=== PATIENT | female | born 1985 | race Caucasian/White ===

== ENCOUNTER 2017-06-01 20:19 | Inpatient (IN) | payer OTHER ==
[~2017-06-01] VITALS: Ht 174 cm; Wt 55.6 kg
[2017-06-01 20:49] VITALS: BP 142/96; RESP 20; O2SAT 100
--- NOTE | 2017-06-01 20:52 | ED.REPORT ---
HPI-General Illness Date of Service Jun 01, 2017 ED Provider: Mir Sanders MD Pt is a generally healthy 31 y/o female presenting to the ED with her father due to seizure and severely bitten tongue which occurred this afternoon. The patient was observed by her father to lean forward, begin whole body shaking, and fall into a pile of clothes on the ground. The episode lasted about 2 minutes. She does have a history of seizures and previously took Keppra but stopped because "her neurologist at [facility] told her she should stop it because they didn't know why she was having seizures and thought she may be experiencing pseudo-seizures". She has bit her tongue previously. There was no injury during the fall other than tongue biting and father who saw the event states that she did not hit her head. Some of the history is obtained from the father as the patient's tongue is quite mangled and she has difficulty speaking. Nursing Notes Stated Complaint: BIT TONGUE Chief Complaint: ENT & Mouth Nursing Notes Reviewed: Yes Allergies: Coded Allergies: Penicillins (Verified Allergy, Severe, Anaphylaxis, 06/01/17) iodine (Verified Allergy, Unknown, 06/01/17) lidocaine (Verified Allergy, Unknown, 06/01/17) Uncoded Allergies: PEANUT BUTTER (Allergy, Mild, vomiting, 06/01/17) General Time Seen by MD: 20:34 Chief Complaint Other (seizure) Hx Obtained From: Patient Arrived By: Walk-in Sudden in Onset?: Yes Onset Occurred: 1 - 4 hours ago Symptom Duration: 1 - 15 minutes Location: : Mouth Quality: Painful Severity: Current: Moderate Severity: Maximum: Moderate Past Medical History Past Medical History Diagnosed with pseudo-seizures per [facility] Past Surgical History None reported Smoking History Unknown if Ever Smoker Ambulatory Status Independent Review of Systems +tongue pain Full Review of Systems GI: Denies: Nausea, Vomiting Neurologic: Reports: Change LOC, Seizure, Shaking, Denies: Headache Complete sys rev & neg: except as marked. Physical Exam Vital Signs Vital Signs Date Time Temp Pulse Resp B/P Pulse Ox O2 Delivery O2 Flow Rate FiO2 06/01/17 20:49 36.2 111 20 142/96 100 Room Air Initial VS: Reviewed, Vital signs abnormal Head / Eyes: Atraumatic, Normocephalic, PERRL Neck: Supple, Full range of motion Respiratory: Breath sounds normal, Clear to auscultation, No respiratory distress Cardiovascular: Regular rate & rhythm, Heart sounds normal, Intact distal pulses Abdomen / GI: Soft, Non-tender Extremities: Vascular intact, Neuro intact, No swelling Skin: Warm, Dry, No cyanosis Psychiatric: Mood/affect normal, Behavior normal, Normal thought content General/Constitutional: Awake, Alert, Cooperative, Not toxic appearing Distress / Hydration: Positive: Distress moderate (secondary to tongue pain) Appearance / Presentation: Positive: In pain, Uncomfortable ENT: Airway patent, Mucous membranes moist Large laceration to the left side of tongue Quite a bit of exposed tissue and shards of tissue present Neurologic: Oriented X3, Speech NL, No motor deficits, No sensory deficits, Memory NL Interpretation & Diagnostics Lab Results Interpretation Result Diagram: 06/01/17222206/01/172222 Re-Eval/Medical Decision Med Decision/Clinical Course Pt is a generally healthy 31 y/o female presenting to the ED with her father due to seizure and severely bitten tongue which occurred this afternoon. The patient was observed by her father to lean forward, begin whole body shaking, and fall into a pile of clothes on the ground. The episode lasted about 2 minutes. She does have a history of seizures and previously took Keppra but stopped because "her neurologist at [facility] told her she should stop it because they didn't know why she was having seizures and thought she may be experiencing pseudo-seizures". She has bit her tongue previously. There was no injury during the fall other than tongue biting and father who saw the event states that she did not hit her head. Some of the history is obtained from the father as the patient's tongue is quite mangled and she has difficulty speaking. Here in the emergency department the patient is alert/awake and oriented. She has significant laceration with clotted material about the left lateral aspect of her tongue with quite a bit of swelling though her airway is widely patent. She does have venous oozing of blood from her tongue. There is no evidence of significant head trauma. There is no meningismus or fever suggestive of a or encephalitis. The overall presentation is highly convincing for a legitimate seizure event. While pseudoseizures are a possibility it is quite atypical for one to bite her tongue especially to this extent. Therefore I have opted to load the patient on Keppra for prophylaxis. The patient was given hydromorphone for pain and Zofran for nausea. Labs notable as below: CBC: Leukocytosis of 19.8, stable HCT of 38.3, thrombocytosis of 1233 CMP: Unremarkable HCG: Negative The patient's bleeding tongue laceration was treated with topical tranexamic acid. The extent of the laceration the patient was evaluated by ENT Dr. Cox. The wound was topical lysed using Cetacaine spray however given the extent of the laceration and patient's degree of anxiety we were not able to repair it in the emergency department. The patient was therefore taken for operative management of her tongue laceration. In regards to the patient's seizure she will be admitted to the hospitalist service with plan for consultation to neurology in the morning. She will likely require additional neuro imaging as well as EEG. We are working on getting her records from [facility]. I do not feel that neuro imaging is emergently indicated as her seizures have been a chronic and ongoing problem and she did not strike her head today. She will likely require neuroimaging however when suspicion for acute intracranial hemorrhage or new mass lesion is relatively low. Patient was admitted in stable condition. Time of Eval: 21:25 Re-Evaluation/Progress Note: Pt rechecked. Informed pt of need for admission. Pt understands and agrees with plan for admission. All questions addressed. Consultation #1: Referral / Consult Name: Malika De La Paz MD Consulted With: Hospitalist Call Returned at: 21:33 Truck Driver Rubbish Collector: Will see patient, Agrees with eval, Agrees with plan, Accepts admit Consultation #2: Referral / Consult Name: rFankie Frey MD Call Returned at: 21:34 Truck Driver Rubbish Collector: Will see patient, Agrees with eval, Agrees with plan Note: Case discussed with ENT. Will come in to the ED to repair. Counseled Regarding: Diagnosis, Lab results, Need for admission Discharge & Departure Primary Impression: Seizure Additional Impressions: Tongue injury Encounter type: initial encounter Qualified Code: S09.93XA - Unspecified injury of face, initial encounter Thrombocytosis Leukocytosis Leukocytosis type: unspecified Qualified Code: D72.829 - Elevated white blood cell count, unspecified Disposition: ADMITTED TO HOSPITAL Discharge Condition All VS Reviewed: Yes Condition: Stable Referrals: OTHER,PHYSICIAN (PCP) (Family) Crit Care Except Billable Proc Time Spent: 105-134 minutes Services Performed: Patient management by me, Time spent at bedside, Reviewing test results, Reviewing imaging, Discussing patient care, Documentation in record, Time with fam/surrogate Scribe Attestation Portions of this note were transcribed by Troy Gaffney. I, Dr. Sanders, personally performed the history, physical exam and medical decision-making; I reviewed and confirmed the accuracy of the information in the transcribed note. Signed by Leeanne Rosas, 06/01/172129 Mir Sanders MD Jun 01, 2017 20:52 TROY GAFFNEY Jun 01, 2017 21:24
[2017-06-01] MEDS ORDERED: HYDROmorphone 0.5 mg/0.5 mL iSecure Syringe IVPUSH ONE ×2 (21:30→22:50)
[2017-06-01] MEDS ORDERED: Ondansetron 2 mg/mL 2 mL Inj IVPUSH ONE (21:30)
[2017-06-01] MEDS ORDERED: levETIRAcetam Inj 1,000 MG in IV Premix 1 EACH IV ONE (21:30)
[2017-06-01] MEDS ORDERED: Benzoc-Butamben-Tetraca Spray 20 Gm Spray TOPICAL ONE (21:50)
[2017-06-01] MEDS ORDERED: Lidocaine 1%-Epi 1:100,000 50 mL Inj SUBQ ONE (21:50)
[2017-06-01] MEDS ORDERED: Tranexamic Acid 100 mg/mL 10 mL Inj TOPICAL ONE (21:50)
[2017-06-01] MEDS ORDERED: Lidocaine 2%-Epi 1:100,000 20 mL Inj ONE (21:55)
[2017-06-01] MEDS ORDERED: Lidocaine 1%/Epi 1:100,000 30 mL MDV SUBQ ONE (21:55)
--- NOTE | 2017-06-01 22:26 | PCM.HPMED ---
Subjective Date of Service Jun 01, 2017 Primary Provider: Admitting Physician: Malika De La Paz MD Primary Care Physician: Haydee Lazcano PA-C Attending Physician: Malika De La Paz MD Chief Complaint: Seizure and tongue bleed History of Present Illness: Carin Weldon is a 31-year-old female with history of clipped brain aneurysm, seizure activity of unknown etiology, and thrombocytosis who presents after seizure activity that caused severe tongue maceration. Patient and father attempted to stop the bleeding at home but were unsuccessful. History is obtained from the patient and father but is somewhat difficult as the patient's tongue continues to bleed and she has it wrapped in a cloth. She states that she had aneurysm clips placed through 4 years ago at [facility]. She was then placed on Keppra for her seizure activity. [facility] has never been able to find a cause or etiology of her seizures. Approximately a year ago [facility] thought she may be having pseudoseizures and discontinued her Keppra. Today is the first seizure she has experienced since discontinuing her Keppra. The patient was observed by her father to lean forward and begin whole body shaking. She subsequently fell on the ground but did not sustain any direct blow to the head. This episode lasted approximately 2 minutes and resolved on its own. In the ED patient was afebrile with a pulse of 111, respiratory rate 20, blood pressure 142/96, oxygen saturation of 100% on room air. Patient was found to have a severe lacerated tongue. Hemostasis with lidocaine/epinephrine and tranexamic acid was unsuccessful by the ED physician. ENT was contacted and attempted repair at bedside but was unsuccessful. The plan is to take the patient to the OR for laceration repair. Patient was loaded with Keppra in the ED as well. Review of Systems: Comprehensive review of systems was conducted with the patient and found to be negative except as noted above in HPI. Allergies Coded Allergies: Penicillins (Verified Allergy, Severe, Anaphylaxis, 06/01/17) iodine (Verified Allergy, Unknown, 06/01/17) lidocaine (Verified Allergy, Unknown, 06/01/17) Uncoded Allergies: PEANUT BUTTER (Allergy, Mild, vomiting, 06/01/17) Home Medications [facility] recently discontinued Aspirin when necessary PMH Diagnosis pseudoseizures per [facility] Clipped brain aneurysm at [facility] Surgical History Clipped aneurysm Appendectomy Right scalene muscle resection. Family History Father - healthy Mother - epilepsy Social History Hx Alcohol Use: No Hx Substance Use: No Hx Tobacco Use: No Smoking Status: Unknown if Ever Smoker Living Arrangement: with Family Exam Vital Signs Vital Sign - Last Date Time Temp Pulse Resp B/P Pulse Ox O2 Delivery O2 Flow Rate FiO2 06/01/17 20:49 36.2 111 20 142/96 100 Room Air Exam General: Restless, in moderate distress. HEENT: Normocephalic, atraumatic. Pupils equal, round, and reactive to light and accommodation. Tongue severely macerated. Difficult to examine at this time due to bleeding. Neck: Supple with full range of motion. No jugular venous distension. No bruits. No lymphadenopathy or thyromegaly. Well-healed surgical scar in the area of the right scalene. Cardiovascular: Regular rate and rhythm with no murmurs, rubs, or gallops appreciated Pulmonary: Clear to auscultation bilaterally with no crackles, wheezes, or rhonchi. Normal respiratory effort with no use of accessory muscles. Abdomen: Bowel tones present. Soft, nontender, nondistended. No hepatosplenomegaly or masses appreciated. Extremities: No clubbing, cyanosis, edema, or lymphadenopathy appreciated. Skin: Normal temperature, turgor, and texture; no rash, ulcers, or subcutaneous nodules appreciated. Neurological: Cranial nerves grossly intact. Normal muscle strength, tone, and bulk. Reflexes, coordination, and sensory function within normal limits. No known gait impairment. Psychiatric: Anxious, restless. Alert and oriented to person, place, and time. Lab and Diagnostics Labs CBC Test 06/01/17 22:23 White Blood Count 19.8th/mm3 (3.8-10.1) Red Blood Count 5.05mil/mm3 (3.90-5.20) Hemoglobin 12.1g/dL (12.0-15.6) Hematocrit 38.3% (35.0-46.0) Mean Corpuscular Volume 75.8fL (81-100) Mean Corpuscular Hemoglobin 24.0pg (27.0-35.0) Mean Corpuscular Hemoglobin Concent 31.6% (32.0-37.0) Red Cell Distribution Width 16.3% (12.3-15.4) Platelet Count 1233bil/L (150-400) Neutrophils (%) (Auto) 77% (40-74) Lymphocytes (%) (Auto) 14% (14-46) Monocytes (%) (Auto) 8% (4-12) Eosinophils (%) (Auto) 1% (0-5) Basophils (%) (Auto) 0% (0-3) CMP Test 06/01/17 22:23 06/01/17 23:16 Sodium Level 137mEq/L Potassium Level 4.3mEq/L Chloride Level 100mEq/L Carbon Dioxide Level 20mmol/L Blood Urea Nitrogen 16mg/dL Creatinine 0.88mg/dL Estimat Glomerular Filtration Rate 107mL/min Glucose Level 104mg/dL Calcium Level 9.2mg/dL Magnesium Level 2.0mg/dL Total Bilirubin 0.3mg/dL Aspartate Amino Transf (AST/SGOT) 48U/L Alanine Aminotransferase (ALT/SGPT) 46U/L Alkaline Phosphatase 54U/L Total Protein 7.7g/dL Albumin 4.6g/dL Human Chorionic Gonadotropin, Qual 0.500 Lactic Acid Level 0.5mmol/L Assessment & Plan Carin Weldon is a 31-year-old female with history of clipped brain aneurysm, seizure activity of unknown etiology, and thrombocytosis who presents after seizure activity that caused severe tongue maceration. Tongue laceration, present on admission, active. - Hemostasis attempted in the ED with lidocaine\epinephrine and Tranexamic Acid with no success. - ENT attempt repair of tongue laceration at bedside but was unsuccessful. Plan to take patient to OR tonight. - Hemoglobin 12.1 and hematocrit 38.3. - Repeat CBC after surgery. - Awaiting recommendations from ENT for postsurgical management. Seizure activity, present on admission, active. - Etiology of seizures unclear. [facility] has completed numerous workups per the patient with no etiology elucidated. - Day team to request records from [facility] urology. - Patient loaded with Keppra in the ED. - Keppra 500 mg twice a day. - CT head without contrast ordered and will be obtained after surgery. Thrombocytosis, present on admission, unknown chronicity. - Patient states she always has elevated platelets but typically they are in the 600 to 700s. - Platelets on admission 1233. - JAK2 panel ordered and pending. - Repeat CBC in the morning. PRN Medications - Acetaminophen as needed for mild pain/fever/headache - Bowel regimen as needed - Antiemetic as needed Patient is admitted under observation status with expected length of stay less than 2 midnights due to severity of presenting symptoms, risk of adverse event, and complexity of treatment plan. GI Prophylaxis: Not indicated VTE Prophylaxis Indicated: Contraindicated VTE Prophylaxis: SCDs Resuscitation Status: CPR: Attempt Resuscitation Attending Statement Pt seen and examined by myself and agree with above plan. EDILIA OHARA DO Jun 01, 2017 22:26 Malika De La Paz MD Jun 02, 2017 06:13
[2017-06-01] MEDS ORDERED: [UNRECOGNIZED DRUG - OTHER] NERVEBLOCK ONE (22:30)
[2017-06-01] MEDS ORDERED: Chloroprocaine-MPF 2% 20 mL Inj NERVEBLOCK ONE (22:35)
[2017-06-01 22:48] LABS: Mean Corpuscular Volume 75.8 fL (81-100)
[2017-06-01 22:51] VITALS: BP 152/89; PULSE 116; RESP 22; O2SAT 100
[2017-06-01 22:51] LABS: BASOPHILS % (AUTO) 0 % (0-3); EOSINOPHILS % (AUTO) 1 % (0-5); MONOCYTES % (AUTO) 8 % (4-12); NEUTROPHILS % (AUTO) 77 % (40-74); Platelet Count 1233 bil/L (150-400)
[2017-06-01] MEDS ORDERED: Lactated Ringer's 1,000 ML IV SCH (23:48)
[2017-06-01] MEDS ORDERED: Lactated Ringer's 500 ML IV PRN (23:48)
[2017-06-01] MEDS ORDERED: HYDROmorphone 1 mg/mL Inj IVPUSH PRN (23:50)
[2017-06-01] MEDS ORDERED: Phenylephrine 10,000 mCg/mL Inj IVPUSH PRN (23:50)
[2017-06-01] MEDS ORDERED: EPHEDrine Sulfate 50 mg/mL Inj IVPUSH PRN (23:50)
[2017-06-01] MEDS ORDERED: fentaNYL-PF 50 mCg/mL 2 mL Inj IVPUSH PRN (23:50)
[2017-06-01] MEDS ORDERED: MetoCLOpramide 5 mg/mL 2 mL Inj IVPUSH PRN (23:50)
[2017-06-01] MEDS ORDERED: Ondansetron 2 mg/mL 2 mL Inj IVPUSH PRN ×2 (23:50→23:55)
[2017-06-01] MEDS ORDERED: Dexamethasone 4 mg/mL Inj IVPUSH PRN (23:50)
--- NOTE | 2017-06-01 23:51 | PCM.HPANE ---
Patient Data Surgeon Admitting Provider:Malika De La Paz MD Attending Provider:Malika De La Paz MD Primary Care Physician:Haydee Lazcano PA-C Other Provider: Reason for Visit Seizure,Tongue Laceration Ht/WT & BMI Body Mass Index Allergies Coded Allergies: Penicillins (Verified Allergy, Severe, Anaphylaxis, 06/01/17) iodine (Verified Allergy, Unknown, 06/01/17) lidocaine (Verified Allergy, Unknown, 06/01/17) Uncoded Allergies: PEANUT BUTTER (Allergy, Mild, vomiting, 06/01/17) Past Anesthesia History Anesthesia History: Denies:: Abnormal Airway, Anesthesia Reactions, Difficult Intubation, Fam Anesthesia Reaction, Fam Malignant Hypertherm, Malignant Hyperthermia Diabetes History Hx Diabetes?: No Medications Hypertension Medication: No Home Meds Incl Beta Della: No History History of ENT Problems?: No HEENT History: Denies:: Abnormal Airway Cataracts Difficult Intubation Dysphagia Glaucoma Hearing Problem Sinus Problem TMJ Denture Type: None Teeth Condition: Inflamed Gums Hx of Heart Problems?: No Cardiovascular History: Denies:: AICD Abdominal Aortic Aneurism Atrial Fibrillation Cardiac Surgery Chest Pain Congestive Heart Failure Coronary Artery Disease Edema Heart Murmur Hypertension Irregular Heartbeat Pacemaker Peripheral Vascular Rheumatic Fever Thrombophlebitis Valvular Heart Disease Hx of Respiratory Problem?: No Respiratory History: Denies:: Asthma COPD Chest Surgery Cough Dyspnea Emphysema Hemoptysis Oxygen Administration Pneumonia Pulmonary Embolism Tuberculosis Use of C-PAP Machine Use of Inhalers / NEBS Hx Neurologic Problems?: Yes Neurological History: Positive for:: Seizures Hx of GI Problems?: No Hx of Problems?: No Hx Musculoskeletal Problems?: No Hx of Psycho/Social Problems?: Yes Psycho Social History: Positive for:: Anxiety Hx Surgeries?: No Smoking Status: Unknown if Ever Smoker Stop/Bang Treated for Sleep Apnea?: No Do You Have a CPAP Machine?: No YING Risk Assessment: Low Risk, <3 Yes Risk Assessment Category Category 1A: Patient has history of documented sleep apnea, and HAS NOT received any narcotic, sedative or anesthesia administration during this stay. Category 1B: Patient has history of documented sleep apnea, and HAS received any narcotic , sedative or anesthesia administration during this stay Category 2: Patient has SUSPECTED Obstructive Sleep Apnea, and HAS received any narcotic , sedative or anesthesia administration during this stay. Category 3: Patient has SUSPECTED Obstructive Sleep Apnea and HAS NOT received narcotic, sedative or anesthesia administration during this stay. Category 4: Outpatient in Procedural Areas with known sleep apnea or who screen positive for High Risk via the STOP/BANG questionnaire. Exam Exam Vital Signs Vital Signs Date Time Temp Pulse Resp B/P Pulse Ox O2 Delivery O2 Flow Rate FiO2 06/01/17 22:51 116 22 152/89 100 Room Air 06/01/17 20:49 36.2 111 20 142/96 100 Room Air General Appearance: Oriented X3 HEENT/AIRWAY: MP 2 Lungs: Normal Air Movement Heart: Regular Rate/Rhythm Meds/Labs/Diagnostics Admission Meds Current Medications Levetiracetam/ Premix (Keppra Inj/IV Premix) 100 ml @ 400 mls/hr ONCE ONCE IV Last administered on 06/01/17 22:12; Start 06/01/17 at 21:30; Stop 06/01/17 at 21:44; Status DC Hydromorphone HCl (Dilaudid Inj) 0.5 mg ONCE ONCE IVPUSH Last administered on 06/01/17 22:12; Start 06/01/17 at 21:30; Stop 06/01/17 at 21:31; Status DC Ondansetron HCl (Zofran Inj) 4 mg ONCE ONCE IVPUSH Last administered on 22:12; Start 06/01/17 at 21:30; Stop 06/01/17 at 21:31; Status DC Tranexamic Acid (Cyklokapron Inj) 1,000 mg ONCE ONCE TOPICAL Last administered on 06/01/17 21:35; Start 06/01/17 at 21:50; Stop 06/01/17 at 21:51 ; Status DC Lidocaine/ Epinephrine (Xylocaine 2%-Epinephrine 1:100,000 Inj) 1 ml STK-MED ONCE .ROUTE Last administered on 06/01/17 22:12; Start 06/01/17 at 21:55; Stop 06/01/17 at 21:56; Status DC Chloroprocaine HCl (Nesacaine-MPF 2% Inj) 10 ml ONCE ONCE NERVEBLOCK Last administered on 06/01/17 22:44; Start 06/01/17 at 22:35; Stop 06/01/17 at 22:36 ; Status DC Hydromorphone HCl (Dilaudid Inj) 0.5 mg ONCE ONCE IVPUSH Last administered on 06/01/17t 22:51; Start 06/01/17 at 22:50; Stop 06/01/17 at 22:51; Status DC Labs Test 06/01/17 22:23 06/01/17 23:16 White Blood Count 19.8th/mm3 (3.8-10.1) Red Blood Count 5.05mil/mm3 (3.90-5.20) Hemoglobin 12.1g/dL (12.0-15.6) Hematocrit 38.3% (35.0-46.0) Mean Corpuscular Volume 75.8fL (81-100) Mean Corpuscular Hemoglobin 24.0pg (27.0-35.0) Mean Corpuscular Hemoglobin Concent 31.6% (32.0-37.0) Red Cell Distribution Width 16.3% (12.3-15.4) Platelet Count 1233bil/L (150-400) Neutrophils (%) (Auto) 77% (40-74) Lymphocytes (%) (Auto) 14% (14-46) Monocytes (%) (Auto) 8% (4-12) Eosinophils (%) (Auto) 1% (0-5) Basophils (%) (Auto) 0% (0-3) Sodium Level 137mEq/L (134-144) Potassium Level 4.3mEq/L (3.5-5.2) Chloride Level 100mEq/L (97-108) Carbon Dioxide Level 20mmol/L (18-29) Blood Urea Nitrogen 16mg/dL (6-20) Creatinine 0.88mg/dL (0.57-1.00) Estimat Glomerular Filtration Rate 107mL/min (>59) Glucose Level 104mg/dL (60-99) Calcium Level 9.2mg/dL (8.5-10.1) Magnesium Level 2.0mg/dL (1.6-2.6) Total Bilirubin 0.3mg/dL (0.0-1.2) Aspartate Amino Transf (AST/SGOT) 48U/L (0-50) Alanine Aminotransferase (ALT/SGPT) 46U/L (0-32) Alkaline Phosphatase 54U/L (25-150) Total Protein 7.7g/dL (6.4-8.4) Albumin 4.6g/dL (3.4-5.0) Human Chorionic Gonadotropin, Qual 0.500 (Negative) Plan Impression Patient chart reviewed, patient interviewed and anesthestic plan with risks, benefits, and alternatives discussed, and informed consent obtained. ASA Physical Status: ASA3 Plus Emergency Anesthetic Plan: GA Bene/Risks/Altern/Consents: Yes HP Complete Prior to Induction: Yes Colton Collins MD Jun 01, 2017 23:51
[2017-06-01] MEDS ORDERED: Polyethylene Glycol (PEG) 17 Gm Powder PO PRN (23:55)
[2017-06-01] MEDS ORDERED: Alum-Mag Hydrox-Simeth 30 mL Suspension PO PRN (23:55)
[2017-06-02] VITALS (10 sets, daily range): BP systolic 118–151; BP diastolic 77–99; PULSE 81–98; RESP 13–18; O2SAT 94–100
[2017-06-02] MEDS ORDERED: Lactated Ringer's 1,000 ML IV ONE (00:01)
--- NOTE | 2017-06-02 00:18 | PCM.HPANE ---
Patient Data Surgeon Admitting Provider:Malika De La Paz MD Attending Provider:Malika De La Paz MD Primary Care Physician:Haydee Lazcano PA-C Other Provider: Reason for Visit Seizure,Tongue Laceration Ht/WT & BMI Body Mass Index Allergies Coded Allergies: Penicillins (Verified Allergy, Severe, Anaphylaxis, 06/01/17) iodine (Verified Allergy, Unknown, 06/01/17) lidocaine (Verified Allergy, Unknown, 06/01/17) Uncoded Allergies: PEANUT BUTTER (Allergy, Mild, vomiting, 06/01/17) Past Anesthesia History Anesthesia History: Denies:: Abnormal Airway, Anesthesia Reactions, Difficult Intubation, Fam Anesthesia Reaction, Fam Malignant Hypertherm, Malignant Hyperthermia Diabetes History Hx Diabetes?: No Medications Hypertension Medication: No Home Meds Incl Beta Della: No History History of ENT Problems?: No HEENT History: Denies:: Abnormal Airway Cataracts Difficult Intubation Dysphagia Glaucoma Hearing Problem Sinus Problem TMJ Denture Type: None Teeth Condition: Inflamed Gums Hx of Heart Problems?: No Cardiovascular History: Denies:: AICD Abdominal Aortic Aneurism Atrial Fibrillation Cardiac Surgery Chest Pain Congestive Heart Failure Coronary Artery Disease Edema Heart Murmur Hypertension Irregular Heartbeat Pacemaker Peripheral Vascular Rheumatic Fever Thrombophlebitis Valvular Heart Disease Hx of Respiratory Problem?: No Respiratory History: Denies:: Asthma COPD Chest Surgery Cough Dyspnea Emphysema Hemoptysis Oxygen Administration Pneumonia Pulmonary Embolism Tuberculosis Use of C-PAP Machine Use of Inhalers / NEBS Hx Neurologic Problems?: Yes Neurological History: Positive for:: CVA Headaches Seizures TIA Other History/Comments several strokes 4? with short term memory loss and right eye visual deficits. Arnold chiari malformation Hx of GI Problems?: No Hx of Problems?: No Hx Musculoskeletal Problems?: Yes Other History/Comment right side interscalene muscles removed Hx of Psycho/Social Problems?: Yes Psycho Social History: Positive for:: Anxiety Hx Surgeries?: Yes (brain aneurysm coiling, appy, interscalene muscles right side removed) Hx Diabetes: No Smoking Status: Unknown if Ever Smoker Stop/Bang Treated for Sleep Apnea?: No Do You Have a CPAP Machine?: No YING Risk Assessment: Low Risk, <3 Yes Risk Assessment Category Category 1A: Patient has history of documented sleep apnea, and HAS NOT received any narcotic, sedative or anesthesia administration during this stay. Category 1B: Patient has history of documented sleep apnea, and HAS received any narcotic , sedative or anesthesia administration during this stay Category 2: Patient has SUSPECTED Obstructive Sleep Apnea, and HAS received any narcotic , sedative or anesthesia administration during this stay. Category 3: Patient has SUSPECTED Obstructive Sleep Apnea and HAS NOT received narcotic, sedative or anesthesia administration during this stay. Category 4: Outpatient in Procedural Areas with known sleep apnea or who screen positive for High Risk via the STOP/BANG questionnaire. Low Risk, <3 Yes Exam Exam Vital Signs Vital Signs Date Time Temp Pulse Resp B/P Pulse Ox O2 Delivery O2 Flow Rate FiO2 06/01/17 22:51 116 22 152/89 100 Room Air 06/01/17 20:49 36.2 111 20 142/96 100 Room Air General Appearance: Oriented X3 HEENT/AIRWAY: MP 2 Lungs: Normal Air Movement Heart: Regular Rate/Rhythm Meds/Labs/Diagnostics Admission Meds Current Medications Levetiracetam/ Premix (Keppra Inj/IV Premix) 100 ml @ 400 mls/hr ONCE ONCE IV Last administered on 06/01/17 22:12; Start 06/01/17 at 21:30; Stop 06/01/17 at 21:44; Status DC Hydromorphone HCl (Dilaudid Inj) 0.5 mg ONCE ONCE IVPUSH Last administered on 06/01/17 22:12; Start 06/01/17 at 21:30; Stop 06/01/17 at 21:31; Status DC Ondansetron HCl (Zofran Inj) 4 mg ONCE ONCE IVPUSH Last administered on 22:12; Start 06/01/17 at 21:30; Stop 06/01/17 at 21:31; Status DC Tranexamic Acid (Cyklokapron Inj) 1,000 mg ONCE ONCE TOPICAL Last administered on 06/01/17 21:35; Start 06/01/17 at 21:50; Stop 06/01/17 at 21:51 ; Status DC Lidocaine/ Epinephrine (Xylocaine 2%-Epinephrine 1:100,000 Inj) 1 ml STK-MED ONCE .ROUTE Last administered on 06/01/17 22:12; Start 06/01/17 at 21:55; Stop 06/01/17 at 21:56; Status DC Chloroprocaine HCl (Nesacaine-MPF 2% Inj) 10 ml ONCE ONCE NERVEBLOCK Last administered on 06/01/17 22:44; Start 06/01/17 at 22:35; Stop 06/01/17 at 22:36 ; Status DC Hydromorphone HCl (Dilaudid Inj) 0.5 mg ONCE ONCE IVPUSH Last administered on 06/01/17 22:51; Start 06/01/17 at 22:50; Stop 06/01/17 at 22:51; Status DC Labs Test 06/01/17 22:23 06/01/17 23:16 White Blood Count 19.8th/mm3 (3.8-10.1) Red Blood Count 5.05mil/mm3 (3.90-5.20) Hemoglobin 12.1g/dL (12.0-15.6) Hematocrit 38.3% (35.0-46.0) Mean Corpuscular Volume 75.8fL (81-100) Mean Corpuscular Hemoglobin 24.0pg (27.0-35.0) Mean Corpuscular Hemoglobin Concent 31.6% (32.0-37.0) Red Cell Distribution Width 16.3% (12.3-15.4) Platelet Count 1233bil/L (150-400) Neutrophils (%) (Auto) 77% (40-74) Lymphocytes (%) (Auto) 14% (14-46) Monocytes (%) (Auto) 8% (4-12) Eosinophils (%) (Auto) 1% (0-5) Basophils (%) (Auto) 0% (0-3) Sodium Level 137mEq/L (134-144) Potassium Level 4.3mEq/L (3.5-5.2) Chloride Level 100mEq/L (97-108) Carbon Dioxide Level 20mmol/L (18-29) Blood Urea Nitrogen 16mg/dL (6-20) Creatinine 0.88mg/dL (0.57-1.00) Estimat Glomerular Filtration Rate 107mL/min (>59) Glucose Level 104mg/dL (60-99) Calcium Level 9.2mg/dL (8.5-10.1) Magnesium Level 2.0mg/dL (1.6-2.6) Total Bilirubin 0.3mg/dL (0.0-1.2) Aspartate Amino Transf (AST/SGOT) 48U/L (0-50) Alanine Aminotransferase (ALT/SGPT) 46U/L (0-32) Alkaline Phosphatase 54U/L (25-150) Total Protein 7.7g/dL (6.4-8.4) Albumin 4.6g/dL (3.4-5.0) Human Chorionic Gonadotropin, Qual 0.500 (Negative) Lactic Acid Level 0.5mmol/L (0.4-2.0) Plan Impression Patient chart reviewed, patient interviewed and anesthestic plan with risks, benefits, and alternatives discussed, and informed consent obtained. Colton Collins MD Jun 02, 2017 00:18
--- NOTE | 2017-06-02 00:51 | PCM.ANEP1 ---
Post Anesthesia PACU Phase 1 Assessment Vital Signs Vital Signs Date Time Temp Pulse Resp B/P Pulse Ox O2 Delivery O2 Flow Rate FiO2 06/01/17 22:51 116 22 152/89 100 Room Air 06/01/17 20:49 36.2 111 20 142/96 100 Room Air Anesthetic Administered: GA Level of Alertness: Sleepy, easy to arouse Pain: No Pain Scale Score: 10 Nausea or Vomiting: No CV Function & Hydration Stable: Yes Airway Device: Oralpharangeal Airway Lungs: Normal Air Movement PACU Phase 2 Assessment Patient Instructions Provided: N/A Colton Collins MD Jun 02, 2017 00:51
--- NOTE | 2017-06-02 01:07 | OP ---
[address] [address] OPERATIVE REPORT PATIENT: KAREY DHILLON : 1985 MR#: [id number] ADMIT: 06/01/2017 JOB ID: [id number] DATE OF SURGERY: SURGEON: Frankie Frey MD PREOPERATIVE DIAGNOSIS(ES): POSTOPERATIVE DIAGNOSIS(ES): INDICATIONS: The patient is a 31-year-old female who presented to the emergency department earlier this evening with bleeding from her tongue. She has evidently had a couple of seizures over the last four days and began bleeding today around 7 o'clock in the evening. The bleeding was unable to be controlled in the emergency department. I saw her in the emergency department and attempted, under local anesthetic with topical Cetacaine, to place some stitches to control the bleeding. This was unsuccessful. The patient was quite anxious and the decision was made to go to the operating room. DESCRIPTION OF PROCEDURE: After an explanation of the procedure, she was brought to the operating room. General anesthesia was given. There was a large hematoma involving the left lateral tongue. This was evacuated. There was a laceration, approximately 5 cm in length, with multiple bleeding sites deep within the tongue. 4-0 chromic was utilized to control multiple bleeding sites and then 4-0 Vicryl was utilized to close the large tongue laceration. The patient tolerated the procedure well. There were no complications. She will be kept on Cleocin orally and seen in our office in a week for followup evaluation. The patient was appreciative and agrees with the above treatment plan.
[2017-06-02] MEDS: HYDROcodone-APAP 7.5-325 mg/15 mL 15 mL Solution PO PRN ×3 (02:02→21:27)
[2017-06-02 02:51] LABS: Mean Corpuscular Hemoglobin 23.5 pg (27.0-35.0)
--- NOTE | 2017-06-02 07:23 | NUR ---
Admit Patient arrived on unit at 0145, father and son waiting in room with belongings. Dr. Frey contacted this RN and ensured He was reachable in the event he would be needed. Patient, cleared by surgery, wished to be discharged. The charge nurse assisted with answering questions and concerns and was able to make the family comfortable with staying. c/o pain upon arrival and given liquid pain medications that prove to be effective. Admission not done to due patient exhaustion. Patient still asleep at this time, VSS.
[2017-06-02] MEDS ORDERED: levETIRAcetam 500 mg Tablet PO SCH ×2 (08:30→20:30)
--- NOTE | 2017-06-02 09:04 | DRSVH ---
PROCEDURE: CT BRAIN WITHOUT CONTRAST ([id number]) INDICATIONS: seizure TECHNIQUE: Noncontrast 4.5 mm thick angled axial sections acquired from the foramen magnum to the vertex, with c oronal reformats. COMPARISON: None. FINDINGS: Image quality: Excellent. CSF spaces: Basal cisterns are patent. No extra-axial fluid collections. Ventricles are normal in size and shape. Brain: No midline shift. No intracranial masses or hemorrhage. Cornejo-white matter interface is norm al. Skull and face: Right frontotemporal calvarial postsurgical change otherwise calvarium and visualized facial bones are intact, without suspicious lesions. Sinuses: Visualized sinuses and mastoids are clear. IMPRESSION: No acute intracranial process. Dictated by: Gregory Tavera M.D. on 06/02/2017 at 9:00 Approved by: Gregory Tavera M.D. on 06/02/2017 at 9:02
--- NOTE | 2017-06-02 10:23 | NUR ---
Social Work: Screening/Multidisciplinary Rounds D: EMR reviewed. Pt is a 31 y/o female admitted for seizure, tongue laceration per H&P. Per MD in rounds, pt was admitted after leaving [facility]. MDs at [facility] took pt off seizure medication thinking that pt was having pseudo seizures. Pt experienced a seizure after medications were discontinued which resulted in a laceration of pt's tongue. 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 Per MD, pt has a 4-year old son for whom pt's father is unable to care for. Pt's spouse is currently working in [place] through 06/05. MD requested SW follow-up with pt and spouse regarding care for 4-year old. MD concerned about pt's capacity for self-care and care for son due to medical complexities. SW will conduct a full assessment on pt due to MDs concern for self-care and care of pt's son. Pt lives at home with her family in [place]. Pt's insurance is [employer] and PCP is Haydee Lazcano PA-C. Pt's NOK is spouse, Srini Weldon [phone]. Per RN notes, pt declined DPOA/advanced directive ppw 06/01. A: TBD during initial assessment P: Assess pt for discharge needs including capacity for self-care and care for 4-year old son. Pt's father unable to care for pt's son, per . Pt's spouse working in [place] through 06/05. SW to follow-up with pt and spouse. Mikala Knowles, FINANCIAL REP
[2017-06-02] MEDS ORDERED: ASPI-973 PO (11:05)
[2017-06-02] MEDS ORDERED: ALBU8.5H2 INHALATION (11:05)
[2017-06-02] MEDS ORDERED: BUDE10.2 INHALATION (11:05)
--- NOTE | 2017-06-02 14:17 | NUR ---
Off Unit to MRI. Per andrés Smith, called [facility], stated that she received report re: aneurysm clips - cleared for MRI. Left via w/c. Await pt return.
--- NOTE | 2017-06-02 16:09 | DRSVH ---
PROCEDURE: MRI BRAIN WITHOUT CONTRAST ([id number]) INDICATIONS: History of neurosurgery 3 years ago/Seizures TECHNIQUE: Noncontrast axial T1 spin echo, axial T2 fast spin echo, sagittal and axial FLAIR, coronal T2 fast sp in echo, axial gradient echo, axial diffusion and ADC through the brain. COMPARISON: [facility], CT, HEAD AND NECK ANGIO, 06/27/2016, 17:17. [facility], MR, MR BRAIN W&WO CON, 06/28/2016, 14:20. [facility], CT, CT BRAIN WO CON, 06/02/2017, 1:28 in terval change.. FINDINGS: Image quality: Excellent. CSF Spaces: Basal cisterns are patent. No extra-axial fluid collections. Ventricles are normal in size and shape. Brain: No intracranial masses or hemorrhage. Cornejo/white matter interface is normal. Brainstem appe ars normal. Diffusion-weighted images demonstrate no acute ischemic insult. No chronic ischemic ins ults. Normal intravascular flow voids are present. Cerebellar tonsils are low lying measuring appro ximately 5 mm. Susceptibility artifact is present in the region of the right anterior circulation/ter sundar internal carotid artery consistent with previous aneurysm repair. Craniotomy and stable postsur gical signal change are noted. Skull and face: Calvarium has normal marrow signal. Orbits appear normal. Sinuses: Sinuses and mastoids are clear. IMPRESSION: 1. No acute intracranial process. 2. Stable appearance of right craniotomy and subtotal he artifact indicating prior repair of aneurysm within the right anterior circulation. 3. Unchanged appearance of cerebellar tonsillar ectopia, borderline for Chiari I malformation. Dictated by: Torrie Davis M.D. on 06/02/2017 at 15:51 Approved by: Torrie Davis M.D. on 06/02/2017 at 16:07
[2017-06-02] MEDS: Clindamycin Inj 600 MG in IV Premix 1 EACH IV SCH ×2 (16:30→17:00)
[2017-06-02] MEDS ORDERED: levETIRAcetam Inj 1,000 MG in IV Premix 1 EACH IV STA (17:53)
--- NOTE | 2017-06-02 20:01 | CONS ---
[address] [address] CONSULTATION REPORT PATIENT: KAREY DHILLON : 1985 MR#: [id number] ADMIT: 06/01/2017 JOB ID: [id number] DATE OF SERVICE: 06/02/2017 NEUROLOGY CONSULTATION: REQUESTING PHYSICIAN: Dallas Etienne MD REASON FOR CONSULTATION: Seizures and bitten tongue. HISTORY OF PRESENT ILLNESS: The patient is a 31-year-old female with a history of aneurysm clipping at [facility] who was briefly on antiepileptic medications with Keppra following surgery. The records are not available but were provided verbally via Dr. Etienne, who spoke with [facility] and Dr. Casillas, the patient's epileptologist. She apparently began having seizures following discontinuation of Keppra; however, video EEG monitoring 1 year ago at [facility] failed to indicate any epileptiform abnormalities. She was subsequently diagnosed with nonepileptic events. Her father has remained convinced that she was having seizures. Dr. Casillas when called today confirmed he did not believe the patient had epilepsy. The patient had a witnessed seizure on June 01, with whole body shaking and the body bent forward, after which the patient fell to the ground without injuring her head, but had a severe laceration to her tongue with a hematoma. The seizure lasted approximately 2 minutes according to chart notes. The patient was transported to [facility] and found to have a severe lacerated tongue. ENT at attempted to repair the tongue at the bedside but was unable to do so. The patient was subsequently sent to the OR for laceration repair. The patient was apparently loaded with levetiracetam in the emergency department and continued on 500 mg levetiracetam b.i.d. No additional seizures have been noted. No seizures were reported in the time since the patient discontinued levetiracetam, reported as a year ago. Notes and records from [facility] have been requested. An EEG was requested and done earlier. I have personally reviewed this and the report is pending. There is evidence of 2-3 hertz rhythmic symmetrical generalized activity noted intermittently with 8-10 hertz brain activity seen in between. Disorganized activity and slow activity is noted at other times. According to the heating repair technician, the patient was intermittently confused and cooperative with the examination. The patient's father is not available to discuss in any detail. REVIEW OF SYSTEMS: The patient reports fatigue, pain, and dysarthria due to tongue swelling. All other systems were reviewed and reported as negative. DRUG ALLERGIES: PENICILLIN, IODINE, LIDOCAINE, AND PEANUT BUTTER. HOME MEDICATIONS: 1. Keppra, recently discontinued. No date noted. 2. P.r.n. aspirin. INPATIENT MEDICATIONS: 1. Levetiracetam 500 mg b.i.d. 2. Clindamycin. 3. No p.r.n.'s given. PAST SURGICAL HISTORY: Right frontal lobe aneurysm repair with questionable complications, appendectomy, right scalene muscle resection. FAMILY HISTORY: Mother with epilepsy. Father without any health problems. SOCIAL HISTORY: Nonsmoker and nondrinker. Lives with her family and has a son who is four. PHYSICAL EXAMINATION: Blood pressure 125/85, patient is afebrile, pulse 94, respiratory rate 16, pulse oximetry 94% on room air. Head: Normocephalic, atraumatic. No evidence of carotid bruits. Lungs: Clear to auscultation. Cardiac: Regular rate and rhythm. S1, S2 present. Of note, is a large ecchymoses on the tongue with bruising, particularly on the left side. Postsurgical scarring and bruising noted in the right frontal head region. NEUROLOGIC EXAMINATION: The patient is alert intermittently and appears to be confused, with eyes rolling up in her head intermittently. Language is dysarthric. This patient initially shows hesitancy in answering questions versus confusion. She is able to give a reasonable history. She does not, however, recall dates of events but can recall events. Cranial nerves: Pupils are equally reactive to light and accommodation. Extraocular movements are intact. No facial asymmetry. Sensation intact on the face bilaterally. Tongue is midline, with ecchymoses as noted. No facial asymmetry. Cranial nerves otherwise appear intact. Motor: Intact strength upper and lower extremities. Deep tender reflexes 1+ throughout symmetrically with plantar reflex flexor. Sensation: Intact to upper and lower extremities to pinprick, soft touch, and vibratory sensation. Coordination: Intact by observation upper and lower extremities. Gait: Deferred to patient's somnolence. IMAGING STUDIES: I have personally reviewed the MRI of the brain which shows stable appearance of the right craniotomy and area of encephalomalacia adjacent to the repair of the right anterior circulation. Unchanged appearance of the cerebellar tonsillar ectopia which was read as borderline for Chiari malformation. No other abnormalities noted. LABORATORY STUDIES: Elevated platelets, elevated white count at 18.4, with low hemoglobin/hematocrit at 10.1/32.6. Chemistry reviewed. Creatinine 0.8. ASSESSMENT: The patient is a 31-year-old female with a diagnosis of nonepileptic events who presents with a witnessed generalized tonic-clonic seizure and severe tongue laceration requiring surgery. MRI of the brain shows stable aneurysm clipping and an area of encephalomalacia in the right frontal lobe with no new or acute findings. The EEG shows evidence of rhythmic generalized slowing which is worrisome for possible underlying seizure focus. Although not definitively epileptiform, the patient's event with tongue laceration is convincing for epileptic seizures. I recommended loading 1000 mg of levetiracetam and continuing 1000 mg b.i.d. I will plan to reassess the patient tomorrow and discuss next steps. Please request records from [facility] including discharge summary and clinic notes from epilepsy, and video EEG monitoring. Thank you for this consultation. MARIKA
[2017-06-02 21:50] LABS: APPEARANCE,URINE CLEAR (CLEAR,HAZY); COLOR,URINE YELLOW (YELLOW); OCCULT BLOOD,URINE TRACE (NEGATIVE); UROBILINOGEN,URINE NORMAL (NORMAL)
--- NOTE | 2017-06-02 23:36 | PCM.PNMED ---
Subjective Date of Service Jun 02, 2017 Subjective Patient is very somnolent today. She is arousable and responsive. She is in no apparent distress. She has no new complaints. Her tongue is uncomfortable after surgery. Exam Vital Signs Vital Sign - Last Date Time Temp Pulse Resp B/P Pulse Ox O2 Delivery O2 Flow Rate FiO2 06/02/17 17:25 36.8 94 16 125/85 94 Room Air 06/02/17 00:50 10 Intake and Output 06/01/17 06/01/17 06/02/17 Cumulative From/Thru 15:00 23:00 07:00 06/02/17 00:01 - 06/02/17 01:16 Intake Total 500 ml 500 ml Balance 500 ml 500 ml IV Total 500 ml 500 ml Exam General: Patient is lying supine in bed with head elevated approximately 10-20 in no apparent distress. HEENT: Head is atraumatic and normocephalic. Eyes: Pupils are equally round and reactive to light and accommodation. Extraocular muscles are intact. Sclera are white, anicteric. Subconjunctival mucosa is pink. Ears and nose are unremarkable. Oropharynx: There is no mucosal lesions, there is no thrush, there is no pharyngitis. However, the tongue inflamed and is purplish and erythematous in color and with stitching in place. Neck: Is supple, there are no nodes, or masses or tenderness. Chest: Is clear to auscultation and percussion. There are no rales, rhonchi, wheezes or rubs. Heart: Rate, rhythm is regular. There is no murmur, rub or gallop. Abdomen: Good bowel sounds are present. Abdomen is soft, nontender, no organomegaly or masses were appreciated. Extremities: Are symmetrical and well perfused. There is no edema, there is no cellulitis, no rash. Neurologic: Patient is lethargic and neurological exam at this time is difficult. Patient has generalized weakness. However, there does not appear to be any focal neurological deficits. Cranial nerves II through XII are intact. There are no sensory or motor deficits. Psychiatric: Patients mood is calm and shows no sign of agitation. Genital: Deferred Rectal: Deferred Lab and Diagnostics Result Diagram: 06/02/17 0225 06/01/173 Microbiology Urine culture is pending X-Rays, CTs and MRIs PROCEDURE: MRI BRAIN WITHOUT CONTRAST ([id number]) INDICATIONS: History of neurosurgery 3 years ago/Seizures TECHNIQUE: Noncontrast axial T1 spin echo, axial T2 fast spin echo, sagittal and axial FLAIR, coronal T2 fast spin echo, axial gradient echo, axial diffusion and ADC through the brain. COMPARISON: [facility], CT, HEAD AND NECK ANGIO, 06/27/2016, 17:17. [facility], MR, MR BRAIN W&WO CON, 06/28/2016, 14:20. [facility], CT, CT BRAIN WO CON, 06/02/2017, 1:28 interval change.. FINDINGS: Image quality: Excellent. CSF Spaces: Basal cisterns are patent. No extra-axial fluid collections. Ventricles are normal in size and shape. Brain: No intracranial masses or hemorrhage. Cornejo/white matter interface is normal. Brainstem appears normal. Diffusion-weighted images demonstrate no acute ischemic insult. No chronic ischemic insults. Normal intravascular flow voids are present. Cerebellar tonsils are low lying measuring approximately 5 mm. Susceptibility artifact is present in the region of the right anterior circulation/terminal internal carotid artery consistent with previous aneurysm repair. Craniotomy and stable postsurgical signal change are noted. Skull and face: Calvarium has normal marrow signal. Orbits appear normal. Sinuses: Sinuses and mastoids are clear. IMPRESSION: 1. No acute intracranial process. 2. Stable appearance of right craniotomy and subtotal he artifact indicating prior repair of aneurysm within the right anterior circulation. 3. Unchanged appearance of cerebellar tonsillar ectopia, borderline for Chiari I malformation. Dictated by: Torrie Davis M.D. on 06/02/2017 at 15:51 Approved by: Torrie Davis M.D. on 06/02/2017 at 16:07 Assessment & Plan Carin Weldon is a 31-year-old female with history of clipped brain aneurysm, seizure activity of unknown etiology, and thrombocytosis who presents after seizure activity that caused severe tongue maceration. Tongue laceration, present on admission, active. - Hemostasis attempted in the ED with lidocaine\epinephrine and Tranexamic Acid with no success. - ENT attempt repair of tongue laceration at bedside but was unsuccessful. - Patient was taken to the operating room by Dr. Frey for repair today. Dr. Frey recommends treatment with clindamycin and for patient to follow-up in his office in 1 week. - Hemoglobin 12.1 and hematocrit 38.3. - Repeat CBC after surgery. Seizure activity, present on admission, active. - Dr. Donna Hicks has been consulted and appreciate her time and expertise. - Etiology of seizures unclear. [facility] has completed numerous workups per the patient with no etiology elucidated. EEG ordered here today however shows seizure activity. - Records have been obtained from [facility]. - Patient loaded with Keppra in the ED. and with information that patient was having seizure activity seen on EEG today we will give another bolus of 1000 mg of Keppra. - Keppra to be increased from 500 mg twice a day to 1000 mg by mouth twice a day. - Thrombocytosis, present on admission, unknown chronicity. - Patient states she always has elevated platelets but typically they are in the 600 to 700s. - Platelets on admission 1233. This is likely reactive due to her recent tongue laceration and trauma. - JAK2 panel ordered and pending. - Repeat CBC in the morning. PRN Medications - Acetaminophen as needed for mild pain/fever/headache - Bowel regimen as needed - Antiemetic as needed Patient is admitted under observation status with expected length of stay less than 2 midnights due to severity of presenting symptoms, risk of adverse event, and complexity of treatment plan. Pain Evaluation: Adequate Pain Control GI Prophylaxis: Not indicated VTE Prophylaxis: SCDs Resuscitation Status: CPR: Attempt Resuscitation Dallas Etienne MD Jun 02, 2017 23:36
[2017-06-03] MEDS: D5 0.45% NaCl + KCl 20 mEq/L 1,000 ML IV SCH ×2 (00:53→14:20)
[2017-06-03] MEDS: Heparin 5,000 Unit/mL Inj SUBQ SCH ×3 (00:54→16:30)
[2017-06-03] MEDS: Clindamycin Inj 600 MG in IV Premix 1 EACH IV SCH ×3 (00:54→16:24)
--- NOTE | 2017-06-03 03:59 | PROCED ---
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 The patient began having seizures after discontinuing Keppra. She has been seizure free since stopping the medication until today by report. Currently Keppra 500 mg. b.i.d. since hospitalization. Prior video EEG monitoring reportedly showed only nonepileptic events. TECHNICAL DESCRIPTION: This digital EEG was recorded using a 25 scalp and ear electrode system with two EKG electrodes. It was reviewed on the bipolar and referential montages using a [employer] Electrode Placement System. DESCRIPTION: While awake and with eyes closed, there are 6 hertz rhythmic and symmetric waveforms seen in the occipital head region which attenuate with eye opening. This is interspersed with rhythmic high voltage bursts of hertz activity most prominently seen at 1622. This generalized activity persists for 1 1/2 minutes at which time, background rhythm normalizes. This pattern persists throughout much of the recording. Intermittently, the patient is confused and moving her legs. She enters sleep at 1641 where additional slowing is noted and the rhythmic high voltage activity persists once again, as generalized activity intermittently. ACTIVATION: Photic activation does not reveal any photic driving and no photoparoxysmal discharges. Hyperventilation does not reveal any paroxysmal discharges; however, there is continued high voltage generalized rhythmic activity intermittently. Rhythm strip, regular rhythm. IMPRESSION: Abnormal electroencephalogram due to intermittent rhythmic generalized high voltage slowing. The patient awake and asleep. This high voltage generalized activity is of unclear significance however may represent seizure activity. There is some suggestion of sharp wave but this is indistinct. Severe sleep deprivation could shows similar findings. I recommend loading antiepileptic medications and observing for improvement in patient's behavior and apparent cognitive abilities. I recommend that the EEG be pushed through to [place] for over-read and interpretation in light of the patient's diagnosis of nonepileptic events. The EEG was discussed with Dr. Etienne. Clinical correlation is advised. [facility]
--- NOTE | 2017-06-03 04:18 | NUR ---
Pain Tongue pain and swelling continues to limit pt's ability to take PO comfortably; IV fluids infusing. Low urine output. Stable to BR with SBA. Hourly rounding ongoing.
[2017-06-03] MEDS: HYDROcodone-APAP 7.5-325 mg/15 mL 15 mL Solution PO PRN ×4 (05:34→21:28)
[2017-06-03 06:29] VITALS: BP 131/88; PULSE 88; RESP 16; O2SAT 95
[2017-06-03 07:05] LABS: BASOPHILS % (AUTO) 0.6 % (0-3); EOSINOPHILS % (AUTO) 3.6 % (0-5); MONOCYTES % (AUTO) 5.9 % (4-12); Mean Corpuscular Hemoglobin 23.2 pg (27.0-35.0); Mean Corpuscular Volume 77.7 fL (81-100); NEUTROPHILS % (AUTO) 51.7 % (40-74)
[2017-06-03 07:24] LABS: Magnesium 2.2 mg/dL (1.6-2.6)
[2017-06-03 07:46] LABS: Platelet Count 1048 bil/L (150-400)
[2017-06-03] MEDS: levETIRAcetam 500 mg Tablet PO SCH ×2 (11:14→21:26)
[2017-06-03 15:18] VITALS: BP 136/89; PULSE 88; RESP 16; O2SAT 99
[2017-06-03] MEDS: fentaNYL-PF 50 mCg/mL 2 mL Inj IVPUSH PRN ×3 (16:24→22:26)
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
--- NOTE | 2017-06-03 19:39 | NUR ---
Pain Pt slept in this AM. Awake throughout rest of day. Improved jaw mobility - able to see inside pt mouth. Still c/o tongue pain and had minimal intake at beginning of shift. For dinner, pt seeming to be tolerating pain little better. Was previously on Lortab, pt stating minimal effect. MD made aware and received order for Fentanyl IV. Dose provided to pt - stating eff. Pt made aware of available pain med times and after educating pt that these are as needed medications was asked if she would prefer to be woken up and stated that she would like to be woken up for pain medications. Was appreciative of that. Passed on to NOC RN. Also stating left sided hip and side pain. Unsure if this is the side she had fallen on with seizure. Tongue pain > side/hip. Pt calm and cooperative with care.
[2017-06-03 20:30] VITALS: BP 129/85; PULSE 104; RESP 16; O2SAT 98
--- NOTE | 2017-06-04 00:05 | PCM.PNMED ---
Subjective Date of Service Jun 03, 2017 Subjective The patient is a much more awake and alert and is now realizing how much her tongue hurts. The oral narcotics are not controlling her pain. Exam Vital Signs Vital Sign - Last Date Time Temp Pulse Resp B/P Pulse Ox O2 Delivery O2 Flow Rate FiO2 06/03/17 15:18 36.8 88 16 136/89 99 Room Air 06/02/17 00:50 10 Intake and Output 06/02/17 06/02/17 06/03/17 Cumulative From/Thru 15:00 23:00 07:00 06/02/17 00:01 - 06/03/17 06:29 Intake Total 420 ml 300 ml 579 ml 1799 ml Output Total 0 ml 0 ml 200 ml 200 ml Balance 420 ml 300 ml 379 ml 1599 ml Intake Oral 420 ml 300 ml 30 ml 750 ml IV Total 549 ml 1049 ml Output Urine Total 0 ml 0 ml 200 ml 200 ml # Bowel Movements 0 0 Exam General: Patient is lying supine in bed with head elevated approximately 45 in no apparent distress. HEENT: Head is atraumatic and normocephalic. Eyes: Pupils are equally round and reactive to light and accommodation. Extraocular muscles are intact. Sclera are white, anicteric. Subconjunctival mucosa is pink. Ears and nose are unremarkable. Oropharynx: There is no mucosal lesions, there is no thrush, there is no pharyngitis. The patient's tongue coloration has improved and is more pink and purple. She does have some exudate and scarring. Neck: Is supple, there are no nodes, or masses or tenderness. Chest: Is clear to auscultation and percussion. There are no rales, rhonchi, wheezes or rubs. Heart: Rate, rhythm is regular. There is no murmur, rub or gallop. Abdomen: Good bowel sounds are present. Abdomen is soft, nontender, no organomegaly or masses were appreciated. Extremities: Are symmetrical and well perfused. There is no edema, there is no cellulitis, no rash. Neurologic: Patient is much more awake and alert and there does not appear to be any focal neurological deficits. Cranial nerves II through XII are intact. There are no sensory or motor deficits. Speech is difficult due to inflamed tongue from laceration and surgery. Psychiatric: Patients mood is calm and shows no sign of agitation. Genital: Deferred Rectal: Deferred Lab and Diagnostics Result Diagram: 06/03/17 0647 06/03/17 0647 Microbiology Urine culture is pending X-Rays, CTs and MRIs PROCEDURE: MRI BRAIN WITHOUT CONTRAST ([id number]) INDICATIONS: History of neurosurgery 3 years ago/Seizures TECHNIQUE: Noncontrast axial T1 spin echo, axial T2 fast spin echo, sagittal and axial FLAIR, coronal T2 fast spin echo, axial gradient echo, axial diffusion and ADC through the brain. COMPARISON: [facility], CT, HEAD AND NECK ANGIO, 06/27/2016, 17:17. [facility], MR, MR BRAIN W&WO CON, 06/28/2016, 14:20. [facility], CT, CT BRAIN WO CON, 06/02/2017, 1:28 interval change.. FINDINGS: Image quality: Excellent. CSF Spaces: Basal cisterns are patent. No extra-axial fluid collections. Ventricles are normal in size and shape. Brain: No intracranial masses or hemorrhage. Cornejo/white matter interface is normal. Brainstem appears normal. Diffusion-weighted images demonstrate no acute ischemic insult. No chronic ischemic insults. Normal intravascular flow voids are present. Cerebellar tonsils are low lying measuring approximately 5 mm. Susceptibility artifact is present in the region of the right anterior circulation/terminal internal carotid artery consistent with previous aneurysm repair. Craniotomy and stable postsurgical signal change are noted. Skull and face: Calvarium has normal marrow signal. Orbits appear normal. Sinuses: Sinuses and mastoids are clear. IMPRESSION: 1. No acute intracranial process. 2. Stable appearance of right craniotomy and subtotal he artifact indicating prior repair of aneurysm within the right anterior circulation. 3. Unchanged appearance of cerebellar tonsillar ectopia, borderline for Chiari I malformation. Dictated by: Torrie Davis M.D. on 06/02/2017 at 15:51 Approved by: Torrie Davis M.D. on 06/02/2017 at 16:07 Assessment & Plan Carin Weldon is a 31-year-old female with history of clipped brain aneurysm, seizure activity of unknown etiology, and thrombocytosis who presents after seizure activity that caused severe tongue maceration. Tongue laceration, present on admission, active. - Hemostasis attempted in the ED with lidocaine\epinephrine and Tranexamic Acid with no success. - ENT attempt repair of tongue laceration at bedside but was unsuccessful. - Patient was taken to the operating room by Dr. Frey for repair and is postop day #1. Dr. Frey recommends treatment with clindamycin and for patient to follow-up in his office in 1 week. - Hemoglobin 12.1 and hematocrit 38.3. - Repeat CBC after surgery - We will continue oral narcotics and Ativan IV fentanyl when necessary for pain control. Leukocytosis, present on admission. Active and secondary to above - White blood cell count is improving daily basis but remains elevated. - We will continue to check serial CBCs. Seizure activity, present on admission, active. - Dr. Donna Hicks has been consulted and appreciate her time and expertise. - Etiology of seizures unclear. [facility] has completed numerous workups per the patient with no etiology elucidated. EEG ordered here today however shows seizure activity. - Records have been obtained from [facility]. - Patient loaded with Keppra in the ED. and with information that patient was having seizure activity seen on EEG today we will give another bolus of 1000 mg of Keppra. - Keppra to be increased from 500 mg twice a day to 1000 mg by mouth twice a day. Thrombocytosis, present on admission, unknown chronicity. - Patient states she always has elevated platelets but typically they are in the 600 to 700s. - Platelets on admission 1233. This is likely reactive due to her recent tongue laceration and trauma. - JAK2 panel ordered and pending. - Repeat CBC in the morning. PRN Medications - Acetaminophen as needed for mild pain/fever/headache - Bowel regimen as needed - Antiemetic as needed Disposition: The patient will be here another 24-[address] Donna Hicks's time and expertise. Pain Evaluation: Adequate Pain Control GI Prophylaxis: Not indicated VTE Prophylaxis: SCDs VTE Mechanical Devices: Intermittant Pneumatic CD Resuscitation Status: CPR: Attempt Resuscitation JaimieDallas herrera MD Jun 04, 2017 00:05
[2017-06-04] MEDS: Heparin 5,000 Unit/mL Inj SUBQ SCH ×3 (01:18→17:28)
[2017-06-04] MEDS: Clindamycin Inj 600 MG in IV Premix 1 EACH IV SCH ×3 (01:18→17:07)
[2017-06-04] MEDS: fentaNYL-PF 50 mCg/mL 2 mL Inj IVPUSH PRN ×7 (01:19→21:59)
[2017-06-04] MEDS: HYDROcodone-APAP 7.5-325 mg/15 mL 15 mL Solution PO PRN ×5 (02:05→20:47)
[2017-06-04] MEDS: D5 0.45% NaCl + KCl 20 mEq/L 1,000 ML IV SCH ×2 (04:25→20:48)
--- NOTE | 2017-06-04 04:46 | NUR ---
Pain Pt reporting tongue pain from -06/29 and has required IV Fentanyl q3 hrs and Lortab q4 hrs to help control pain. Pt bit her tongue again after drinking and this caused a blister to form on the outer left side of her tongue. Tongue is swollen and bruising, especially under left side. Pt up to BR with SBA and voided 750 clear urine but also had some vaginal bleeding thought to be menses, however pt reports she has not had a menses in a few years. Drainage is minimal and pt is wearing a long pad. Continue to monitor. Pt now resting and appears comfortable. Son and in room, assisting with care.
[2017-06-04 07:27] VITALS: BP 155/96; PULSE 87; RESP 16; O2SAT 97
[2017-06-04] MEDS: levETIRAcetam 500 mg Tablet PO SCH ×2 (08:08→20:47)
[2017-06-04 08:58] LABS: BASOPHILS % (AUTO) 0.6 % (0-3); EOSINOPHILS % (AUTO) 4.8 % (0-5); MONOCYTES % (AUTO) 7.2 % (4-12); Mean Corpuscular Hemoglobin 23.7 pg (27.0-35.0); Mean Corpuscular Volume 77.6 fL (81-100)
[2017-06-04 09:11] VITALS: BP 111/77; PULSE 88; RESP 18; O2SAT 100
[2017-06-04 09:17] LABS: Platelet Count 1016 bil/L (150-400)
[2017-06-04 09:23] LABS: Magnesium 2.1 mg/dL (1.6-2.6)
[2017-06-04] MEDS ORDERED: cefTRIAXone Inj 2,000 MG in Dextrose 5% Minibag Plus 50 ML IV SCH (11:15)
[2017-06-04 13:11] VITALS: BP 139/67; PULSE 79; RESP 16; O2SAT 98
[2017-06-04] MEDS: levoFLOXacin 500 mg Tablet PO SCH (14:40)
[2017-06-04 20:41] VITALS: BP 148/92; PULSE 90; RESP 18; O2SAT 100
--- NOTE | 2017-06-04 22:35 | NUR ---
Pain/Headache Pt with continued IVP and PO pain medications, seeming improved with swallowing capabilities in comparison to previous day, still painful. No acute issues throughout day shift. Around ~1999, pt c/o intense headache. [place] given 45mins early and cook page to Dr. Schaffer. Received order for Ibuprofen and administered along with Fentanyl. Pt with continued headache. Lights turned low. Care continues.
--- NOTE | 2017-06-04 23:24 | PCM.PNMED ---
Subjective Date of Service Jun 04, 2017 Subjective The patient states that she bit her tongue again last night while eating and it is extremely painful. She has had no further seizures and is more awake and alert today. She told the nursing staff that she was on her period, and that she has not had one in a long time. She has no other new complaints. Exam Vital Signs Vital Sign - Last Date Time Temp Pulse Resp B/P Pulse Ox O2 Delivery O2 Flow Rate FiO2 06/04/17 20:41 36.9 90 18 148/92 100 Room Air 06/02/17 00:50 10 Intake and Output 06/03/17 06/03/17 06/04/17 Cumulative From/Thru 15:00 23:00 07:00 06/02/17 00:01 - 06/04/17 04:34 Intake Total 1131 ml 763 ml 3693 ml Output Total 1000 ml 1200 ml Balance 131 ml 763 ml 2493 ml Intake Oral 200 ml 950 ml IV Total 931 ml 763 ml 2743 ml Output Urine Total 1000 ml 1200 ml # Bowel Movements 0 0 Exam General: Patient is lying supine in bed with head elevated approximately 45 in no apparent distress. HEENT: Head is atraumatic and normocephalic. Eyes: Pupils are equally round and reactive to light and accommodation. Extraocular muscles are intact. Sclera are white, anicteric. Subconjunctival mucosa is pink. Ears and nose are unremarkable. Oropharynx: There is no mucosal lesions, there is no thrush, there is no pharyngitis. The patient's tongue coloration has improved and is more pink and purple. She does have some exudate and scarring. Neck: Is supple, there are no nodes, or masses or tenderness. Chest: Is clear to auscultation and percussion. There are no rales, rhonchi, wheezes or rubs. Heart: Rate, rhythm is regular. There is no murmur, rub or gallop. Abdomen: Good bowel sounds are present. Abdomen is soft, nontender, no organomegaly or masses were appreciated. Extremities: Are symmetrical and well perfused. There is no edema, there is no cellulitis, no rash. Neurologic: Patient is much more awake and alert and there does not appear to be any focal neurological deficits. Cranial nerves II through XII are intact. There are no sensory or motor deficits. Speech is difficult due to inflamed tongue from laceration and surgery. Psychiatric: Patients mood is calm and shows no sign of agitation. Genital: Deferred Rectal: Deferred Lab and Diagnostics Result Diagram: 06/04/17 0845 06/04/17 0845 Microbiology Urine culture is pending X-Rays, CTs and MRIs PROCEDURE: MRI BRAIN WITHOUT CONTRAST ([id number]) INDICATIONS: History of neurosurgery 3 years ago/Seizures TECHNIQUE: Noncontrast axial T1 spin echo, axial T2 fast spin echo, sagittal and axial FLAIR, coronal T2 fast spin echo, axial gradient echo, axial diffusion and ADC through the brain. COMPARISON: [facility], CT, HEAD AND NECK ANGIO, 06/27/2016, 17:17. [facility], MR, MR BRAIN W&WO CON, 06/28/2016, 14:20. [facility], CT, CT BRAIN WO CON, 06/02/2017, 1:28 interval change.. FINDINGS: Image quality: Excellent. CSF Spaces: Basal cisterns are patent. No extra-axial fluid collections. Ventricles are normal in size and shape. Brain: No intracranial masses or hemorrhage. Cornejo/white matter interface is normal. Brainstem appears normal. Diffusion-weighted images demonstrate no acute ischemic insult. No chronic ischemic insults. Normal intravascular flow voids are present. Cerebellar tonsils are low lying measuring approximately 5 mm. Susceptibility artifact is present in the region of the right anterior circulation/terminal internal carotid artery consistent with previous aneurysm repair. Craniotomy and stable postsurgical signal change are noted. Skull and face: Calvarium has normal marrow signal. Orbits appear normal. Sinuses: Sinuses and mastoids are clear. IMPRESSION: 1. No acute intracranial process. 2. Stable appearance of right craniotomy and subtotal he artifact indicating prior repair of aneurysm within the right anterior circulation. 3. Unchanged appearance of cerebellar tonsillar ectopia, borderline for Chiari I malformation. Dictated by: Torrie Davis M.D. on 06/02/2017 at 15:51 Approved by: Torrie Davis M.D. on 06/02/2017 at 16:07 Assessment & Plan Carin Weldon is a 31-year-old female with history of clipped brain aneurysm, seizure activity of unknown etiology, and thrombocytosis who presents after seizure activity that caused severe tongue maceration. Tongue laceration, present on admission, active. - Hemostasis attempted in the ED with lidocaine\epinephrine and Tranexamic Acid with no success. - industry consultant Dr. Frey attempted repair of tongue laceration at bedside but was unsuccessful. - Patient was taken to the operating room by Dr. Frey for repair and is postop day #2. Dr. Frey recommends treatment with clindamycin and for patient to follow-up in his office in 1 week. - Hemoglobin 12.1 and hematocrit 38.3. - Repeat serial CBCs - We will continue oral narcotics and IV fentanyl when necessary for pain control. Leukocytosis, present on admission. Active and secondary to above - White blood cell count is improving on a daily basis but remains elevated. - We will continue to check serial CBCs. Seizure activity, present on admission, active. - Dr. Donna Hicks has been consulted and appreciate her time and expertise. - Etiology of seizures unclear. [facility] has completed numerous workups per the patient with no etiology elucidated. EEG ordered here today however shows seizure activity. - Records have been obtained from [facility]. - Patient loaded with Keppra in the ED. and with information that patient was having seizure activity seen on EEG today we will give another bolus of 1000 mg of Keppra. - Keppra to be increased from 500 mg twice a day to 1000 mg by mouth twice a day. Thrombocytosis, present on admission, unknown chronicity. - Patient states she always has elevated platelets but typically they are in the 600 to 700s. - Platelets on admission 1233. This is likely reactive due to her recent tongue laceration and trauma. - JAK2 panel ordered and pending. - Repeat CBC in the morning. PRN Medications - Acetaminophen as needed for mild pain/fever/headache - Bowel regimen as needed - Antiemetic as needed Disposition: The patient will be here another 24-[address] Donna Hicks's time and expertise. Dr. Lester will follow in a.m. Pain Evaluation: Adequate Pain Control GI Prophylaxis: Not indicated VTE Prophylaxis: SCDs VTE Mechanical Devices: Intermittant Pneumatic CD Resuscitation Status: CPR: Attempt Resuscitation Dallas Etienne MD Jun 04, 2017 23:24
[2017-06-05] MEDS: Clindamycin Inj 600 MG in IV Premix 1 EACH IV SCH ×3 (00:37→16:58)
[2017-06-05] MEDS: Heparin 5,000 Unit/mL Inj SUBQ SCH ×3 (00:37→16:59)
[2017-06-05] MEDS: HYDROcodone-APAP 7.5-325 mg/15 mL 15 mL Solution PO PRN ×3 (05:00→21:05)
[2017-06-05] MEDS: fentaNYL-PF 50 mCg/mL 2 mL Inj IVPUSH PRN ×4 (05:01→23:21)
--- NOTE | 2017-06-05 05:04 | NUR ---
Pain Patient reported 8/10 tongue pain. 10ml [place] and 0.25mcg of Fentanyl given. Patient denies nausea at this time. Patient SBA and repositions self for comfort. and child at bedside. Call light and tray table within reach. Will continue to monitor patient hourly.
[2017-06-05 05:51] VITALS: BP 160/90; PULSE 89; RESP 16; O2SAT 98
[2017-06-05 06:35] LABS: BASOPHILS % (AUTO) 0.7 % (0-3); MONOCYTES % (AUTO) 6.6 % (4-12); Mean Corpuscular Hemoglobin 23.7 pg (27.0-35.0); Mean Corpuscular Volume 77.4 fL (81-100); NEUTROPHILS % (AUTO) 63.7 % (40-74); Platelet Count 813 bil/L (150-400)
[2017-06-05 08:01] LABS: ERYTHROCYTE SEDIMENTATION RATE 2 mm/hr (0-32)
[2017-06-05] MEDS: levoFLOXacin 500 mg Tablet PO SCH (08:39)
[2017-06-05] MEDS: levETIRAcetam 500 mg Tablet PO SCH ×2 (08:39→21:07)
[2017-06-05 09:29] VITALS: BP 133/87; PULSE 94; RESP 18; O2SAT 100
[2017-06-05] MEDS: D5 0.45% NaCl + KCl 20 mEq/L 1,000 ML IV SCH (10:03)
--- NOTE | 2017-06-05 10:16 | NUR ---
Mentation This AM patient was hard to wake-needed sternum rub to open eyes. Upon waking, patient unable to give a number for pain from the pain scale for 12 minutes. Asked patient is she understood what I was asking and if she knows what numbers are. During this time patient was giggling and looking around the room. After a few times, patient was able to state a number for pain and that she knew what numbers were. Continued with assessment. Upon leaving the room, the patient stated "thank you, I'm just a little slow.". Reassured patient that this RN was assessing if she could speak, assess her pain, and if her mentation was in tact. Hourly rounding continues. Family in room. Seizure pads in place. Addendum: 06/05/17 at 1508 by ELEN JONES RN Mentation has improved throughout shift and patient is less somnolent and has been answering questions appropriately. Talked with patient about this AM and asked her if she felt as though she was post ictal and she stated that she thought she was this AM and her agreed. She states she does not believe this mentation was due to pain medication. Continues to report pain at a 06/29. Addendum: 06/05/17 at 1555 by ELEN JONES RN MD made aware and patient is staying another night. Seizure pads in place and frequent rounding in place.
--- NOTE | 2017-06-05 12:34 | PCM.PNMED ---
Subjective Date of Service Jun 05, 2017 Subjective Patient had no witnessed seizure events overnight. However patient was slightly confused this morning versus yesterday per staff. Patient thinks is possible she may have had a small seizure. Family was in the room at the time did not notice. Patient currently is more alert and aware. Exam Vital Signs Vital Sign - Last Date Time Temp Pulse Resp B/P Pulse Ox O2 Delivery O2 Flow Rate FiO2 06/05/17 09:29 36.5 94 18 133/87 100 Room Air 06/02/17 00:50 10 Intake and Output 06/04/17 06/04/17 06/05/17 Cumulative From/Thru 15:00 23:00 07:00 06/02/17 00:01 - 06/05/17 05:51 Intake Total 650 ml 2065 ml 1106 ml 7514 ml Output Total 750 ml 1400 ml 650 ml 4000 ml Balance -100 ml 665 ml 456 ml 3514 ml Intake Oral 650 ml 920 ml 500 ml 3020 ml IV Total 1145 ml 606 ml 4494 ml Output Urine Total 750 ml 1400 ml 650 ml 4000 ml # Bowel Movements 0 0 0 Exam Gen: NAD, AOx3. HEENT: NCAT, PERRLA, EOMI, sclera anicteric. Tongue- some exudate and scarring. No active bleeding. Tongue swelling has improved. Speech is still slightly slurred. Neck: Soft, supple, symmetrical, no thyromegaly/JVD/LAD. Resp: CTAB, no R/R/W. CV: RRR, nl S1/S2, no M/R/G, Abd: Soft, (+) BS, no guarding/rebound/organomegaly. Ext: +PP, -edema Skin: warm/dry/intact Neuro/Psych: No focal deficits, CN II-XII grossly intact. AAOx3, cooperative , patient did have a flat affect but answered questions fully. IVs and Medications Medications Reviewed: Medications were reviewed in detail Lab and Diagnostics Result Diagram: 06/05/17 0550 06/05/17 0550 Microbiology SHAHRAM CULT URINE Final 06/04/17 Organism 1 ESCHERICHIA COLI U COLONY COUNT/QUANTITY >100,000 CFU/ml Cefazolin-predicts results for the oral agents, cefaclor,cefdinir, cefpodoximen, cefprozil, cefuroximne axetil, cephalexin and loracarbed when used for therapy of uncomplicated UTI's due to E. coli, K. pneumoniae, and Proteus mirabilis. Cefpodoxime, cefdinir and cefuroxime axetil may be tested individually because some isolates may be susceptible to these agents while testing resistant to cefazolin. (CLSI I193-N62 pg 53) 1. ESCHERICHIA COLI M.I.C Interp --------- ------ * AMOXICILLIN/CLAVULATE 4 S * AMPICILLIN <=2 S * CEFAZOLIN (CEPHALOSPORIN) UTI 4 S * CEFEPIME <=1 S * CEFTRIAXONE <=1 S * CEFUROXIME SODIUM 4 S * CIPROFLOXACIN <=0.25 S * ERTAPENEM <=0.5 S * GENTAMICIN <=1 S * IMIPENEM <=1 S * LEVOFLOXACIN <=0.12 S * NITROFURANTOIN <=16 S * TETRACYCLINE <=1 S * TOBRAMYCIN <=1 S * TRIMETHOPRIM/SULFAMETHOXAZOLE <=20 S X-Rays, CTs and MRIs PROCEDURE: MRI BRAIN WITHOUT CONTRAST ([id number]) INDICATIONS: History of neurosurgery 3 years ago/Seizures TECHNIQUE: Noncontrast axial T1 spin echo, axial T2 fast spin echo, sagittal and axial FLAIR, coronal T2 fast spin echo, axial gradient echo, axial diffusion and ADC through the brain. COMPARISON: [facility], CT, HEAD AND NECK ANGIO, 06/27/2016, 17:17. [facility], MR, MR BRAIN W&WO CON, 06/28/2016, 14:20. [facility], CT, CT BRAIN WO CON, 06/02/2017, 1:28 interval change.. FINDINGS: Image quality: Excellent. CSF Spaces: Basal cisterns are patent. No extra-axial fluid collections. Ventricles are normal in size and shape. Brain: No intracranial masses or hemorrhage. Cornejo/white matter interface is normal. Brainstem appears normal. Diffusion-weighted images demonstrate no acute ischemic insult. No chronic ischemic insults. Normal intravascular flow voids are present. Cerebellar tonsils are low lying measuring approximately 5 mm. Susceptibility artifact is present in the region of the right anterior circulation/terminal internal carotid artery consistent with previous aneurysm repair. Craniotomy and stable postsurgical signal change are noted. Skull and face: Calvarium has normal marrow signal. Orbits appear normal. Sinuses: Sinuses and mastoids are clear. IMPRESSION: 1. No acute intracranial process. 2. Stable appearance of right craniotomy and subtotal he artifact indicating prior repair of aneurysm within the right anterior circulation. 3. Unchanged appearance of cerebellar tonsillar ectopia, borderline for Chiari I malformation. Dictated by: Torrie Davis M.D. on 06/02/2017 at 15:51 Approved by: Torrie Davis M.D. on 06/02/2017 at 16:07 Assessment & Plan Carin Weldon is a 31-year-old female with history of clipped brain aneurysm, seizure activity of unknown etiology, and thrombocytosis who presents after seizure activity that caused severe tongue maceration s/p repair postop day #3. Tongue laceration, present on admission, active. - Hemostasis attempted in the ED with lidocaine\epinephrine and Tranexamic Acid with no success. - [employer] hcm consultant Dr. Frey attempted repair of tongue laceration at bedside but was unsuccessful. - Patient was taken to the operating room by Dr. Frey for repair and is postop day #3. - Hemoglobin 12.1 and hematocrit 38.3, stable. . -ENT- Dr. Frey recommends treatment with clindamycin and for patient to follow -up in his office in 1 week. - Repeat serial CBCs, wbc downtrending. - We will continue oral narcotics and IV fentanyl when necessary for pain control, transition to PO Lortab. Leukocytosis, present on admission. Active and secondary to above. Possible infections include urinary tract infection, tongue infection. Thrush also possibility. Her treating with clindamycin for tongue laceration, levofloxacin for urinary tract infection, fluconazole for thrush. - Urine Culture +E Coli.Continue 7 days of treatment until 06/12. - We will continue to check serial CBCs. --WBC Downtrending. Antibiotics as per above. Seizure activity, present on admission, active. - Dr. Donna Hicks has been consulted and appreciate her time and expertise. - Etiology of seizures unclear. [facility] has completed numerous workups per the patient with no etiology elucidated. EEG ordered here today however shows seizure activity. - Records have been obtained from [facility]. - Patient loaded with Keppra in the ED. and with information that patient was having seizure activity seen on EEG today we will give another bolus of 1000 mg of Keppra. - Keppra to be increased from 500 mg twice a day to 1000 mg by mouth twice a day. Neuro Recs-continuing levetiracetam at 1000 mg two times daily and following up with Dr. Casillas at [facility] for further evaluation and treatment. 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 Thrombocytosis, present on admission, unknown chronicity. - Patient states she always has elevated platelets but typically they are in the 600 to 700s. - Platelets on admission 1233. This is likely reactive due to her recent tongue laceration and trauma. - JAK2 panel ordered and pending. - Repeat CBC shows platelet count downtrending to 813. Hyperkalemia- potassium is 5.1 today. We will hold potassium supplementation with IV fluids. Can hold IV fluids as patient is tolerating by mouth diet. PRN Medications - Acetaminophen as needed for mild pain/fever/headache - Bowel regimen as needed - Antiemetic as needed Disposition: The patient will be here another 24-48 hours. Discharge Instructions- - ENT- Dr. Frey recommends follow-up in his office in 1 week and to continue clindamycin for 1 week or longer depending on follow-up visit. - Neuro-Dr. Donna Hicks recommends levetiracetam at 1000 mg two times daily and following up with Dr. Casillas at [facility] for further evaluation. - Counseling should be continued. - For UTI with Urine Culture +E Coli.Continue 7 days of treatment until 06/12. Continue Fluconazole for oral Thrush for 1 week until 06/12. Pain Evaluation: Adequate Pain Control GI Prophylaxis: Not indicated VTE Prophylaxis: Sub-Q Heparin (Unfractionated), SCDs VTE Mechanical Devices: Intermittant Pneumatic CD Resuscitation Status: CPR: Attempt Resuscitation Lucius Lester MD Jun 05, 2017 12:33
--- NOTE | 2017-06-05 15:08 | NUR ---
NUTRITION ASSESSMENT: ASSESS: 31YO F POD 3 for repair of tongue laceration. Continuing to workup for etiology of seizures. PMHX: Clipped brain aneurysm, seizures DIET: Soft. PO 25-75% LABS: Alb WNL MEDS: Reviewed. Fluconazole GI: WEIGHT:55.4kg BMI: 18.3 EST.NEEDS: WEIGHT GAIN (30-35kcal/kg;1.2-1.5g/kg pro) Kcal: 7643-9855 Pro: 80-100g NUTRITION DIAGNOSIS: (1) Increased protein/energy needs related to increased demand for nutrients as evidenced by underweight status. INTERVENTION: (1) Supplements added BID to promote adequate kcal/protein intake. Ensure. MONITOR/EVALUATE: PO intake, lab values, weight. F/U per moderate risk.
[2017-06-05] MEDS ORDERED: 0.9% Sodium Chloride 250 ML ONE (16:36)
--- NOTE | 2017-06-05 19:20 | NUR ---
Seizure Activity Patient's came out into hallway and stated he thought he was having a seizure. Upon assessment patient was sitting upright in bed holding a spoon attempting to eat dinner. Asked patient to smile, hold her arms out and close her eyes, squeeze my hands, tell me her name and birthday, where she was and why she was here. All findings were WNL. Asked patient if she felt as though she lost time and she shook her head and said she didn't know. Asked to describe what he saw and he stated that the patient was eating dinner and just stopped and stared. MD aware and went in to assess patient. Continuing frequent rounding. Seizure pads in place. DVT prophylaxis in place.
[2017-06-05 20:27] VITALS: BP 118/84; PULSE 98; RESP 16; O2SAT 100
[2017-06-06] MEDS: Heparin 5,000 Unit/mL Inj SUBQ SCH ×3 (01:40→16:19)
[2017-06-06] MEDS: Clindamycin Inj 600 MG in IV Premix 1 EACH IV SCH ×3 (01:43→16:19)
--- NOTE | 2017-06-06 02:23 | NUR ---
Pain/Mentation On initial assessment, patient stated pain 8/10 on pain scale. Roxycodone 5ml administered. At recheck, patient stated pain was still 8/10. Motrin 800mg administered. Patient alert and oriented x3 with some slow responses to questions. Patient requested Sublimaze for pain control post administration of Motrin. VSS. Call light within reach. Care continues.
[2017-06-06] MEDS: HYDROcodone-APAP 7.5-325 mg/15 mL 15 mL Solution PO PRN (03:12)
[2017-06-06 04:23] VITALS: BP 151/89; PULSE 87; RESP 18; O2SAT 99
--- NOTE | 2017-06-06 05:27 | NUR ---
Uncontrolled Pain Throughout the evening, patient stated pain at 8/10. Lortab 10ml administered along with 800mg Motrin. Patient became somewhat irritated when explained physicians note in regards to weaning off the Sublimaze.
[2017-06-06 07:39] LABS: BASOPHILS % (AUTO) 0.8 % (0-3); EOSINOPHILS % (AUTO) 3.7 % (0-5); MONOCYTES % (AUTO) 8.7 % (4-12); Mean Corpuscular Hemoglobin 23.2 pg (27.0-35.0); Mean Corpuscular Volume 74.9 fL (81-100); NEUTROPHILS % (AUTO) 56.2 % (40-74); Platelet Count 854 bil/L (150-400)
[2017-06-06 08:32] VITALS: BP 135/89; PULSE 75; RESP 16; O2SAT 100
[2017-06-06] MEDS: levoFLOXacin 500 mg Tablet PO SCH (09:25)
[2017-06-06] MEDS: levETIRAcetam 500 mg Tablet PO SCH ×2 (09:28→20:16)
[2017-06-06 12:41] VITALS: BP 122/86; PULSE 96; RESP 16; O2SAT 98
--- NOTE | 2017-06-06 16:25 | NUR ---
Social Work- Readiness for Discharge/Multidisciplinary Rounds Data: EMR reviewed. Pt is on day 5 of hospitalization for seizure, tongue laceration per H&P. Per multidisciplinary rounds, pt is not medically stable for discharge, anticipate tomorrow. Pt will require follow up appointment with Neurologist at discharge. SW met with pt and at bedside regarding discharge plan. Pt is agreeable to discharge tomorrow. Pt's will provide transportation home. SW will ensure that pt's follow up appointment information is in her discharge instructions. SW will continue to follow. Assessment: Pt who is independent at baseline. Plan: Pt will require follow up appointment with a Neurologist. SW will ensure that pt's follow up appointment information is in her discharge instructions. Pt's will provide transportation home. No other discharge needs identified. SW will continue to follow. ROSI Huynh
--- NOTE | 2017-06-06 18:40 | NUR ---
Seizure- called out from room saying that patient had just had a seizure. When I walked in patient was lying in bed awake with eyes open. She was slow to respond verbally, but answered "yes". when I asked her if she could hear me. She was able to move all extremities and obey commands. No resp. distress. SPO2 98%. MD in to see patient. No further seizure activity noted.
[2017-06-06 20:02] VITALS: BP 118/84; PULSE 99; RESP 18; O2SAT 100
[2017-06-07] MEDS: Clindamycin Inj 600 MG in IV Premix 1 EACH IV SCH ×2 (01:38→09:28)
[2017-06-07] MEDS: Heparin 5,000 Unit/mL Inj SUBQ SCH ×2 (01:45→09:28)
--- NOTE | 2017-06-07 04:04 | NUR ---
Activity On initial assessment, patient did not appear to have a delay in responses to assessment questions. Patient was alert and oriented . Patient stated pain at a 8/10 on pain scale . Pain medication administered. Patient concerned about black suture on the surgical side of tongue protruding out to cheek. Patient assured that message would be forwarded to physician. VSS. Call light within reach. Care continues.
[2017-06-07 05:22] VITALS: BP 132/86; PULSE 90; RESP 16; O2SAT 100
[2017-06-07 07:17] LABS: BASOPHILS % (AUTO) 1.3 % (0-3); EOSINOPHILS % (AUTO) 3.7 % (0-5); MONOCYTES % (AUTO) 8.6 % (4-12); Mean Corpuscular Hemoglobin 23.4 pg (27.0-35.0); Mean Corpuscular Volume 76.2 fL (81-100); NEUTROPHILS % (AUTO) 55.1 % (40-74); Platelet Count 872 bil/L (150-400)
[2017-06-07] MEDS: levETIRAcetam 500 mg Tablet PO SCH (09:27)
[2017-06-07] MEDS: levoFLOXacin 500 mg Tablet PO SCH (09:28)
[2017-06-07 09:53] VITALS: BP 118/81; PULSE 97; RESP 16; O2SAT 97
--- NOTE | 2017-06-07 10:49 | PCM.PNMED ---
Subjective Date of Service Jun 07, 2017 Subjective Patient had no seizure episodes overnight. His pain is better controlled with by mouth Dilaudid. No new complaints. Exam Vital Signs Vital Sign - Last Date Time Temp Pulse Resp B/P Pulse Ox O2 Delivery O2 Flow Rate FiO2 06/07/17 09:53 36.7 97 16 118/81 97 Room Air 06/02/17 00:50 10 Intake and Output 06/06/17 06/06/17 06/07/17 Cumulative From/Thru 15:00 23:00 07:00 06/02/17 00:01 - 06/07/17 06:28 Intake Total 1114 ml 300 ml 56418 ml Output Total 500 ml 6975 ml Balance 614 ml 300 ml 4824 ml Intake Oral 1114 ml 300 ml 6474 ml IV Total 5325 ml Output Urine Total 500 ml 6975 ml # Voids 2 2 4 # Bowel Movements 1 2 Exam Gen: NAD, AOx3. HEENT: NCAT, PERRLA, EOMI, sclera anicteric. Tongue- some exudate and scarring. No active bleeding. Tongue swelling- improved. Neck: Soft, supple, symmetrical, no thyromegaly/JVD/LAD. Resp: CTAB, no R/R/W. CV: RRR, nl S1/S2, no M/R/G, Abd: Soft, (+) BS, no guarding/rebound/organomegaly. Ext: +PP, -edema Skin: warm/dry/intact Neuro/Psych: No focal deficits, CN II-XII grossly intact. AAOx3, cooperative , patient did have a flat affect but answered questions fully. IVs and Medications Medications Reviewed: Medications were reviewed in detail Lab and Diagnostics Result Diagram: 06/07/17 0706/07/17 07 Microbiology SHAHRAM CULT URINE Final 06/04/17-08 Organism 1 ESCHERICHIA COLI U COLONY COUNT/QUANTITY >100,000 CFU/ml Cefazolin-predicts results for the oral agents, cefaclor,cefdinir, cefpodoximen, cefprozil, cefuroximne axetil, cephalexin and loracarbed when used for therapy of uncomplicated UTI's due to E. coli, K. pneumoniae, and Proteus mirabilis. Cefpodoxime, cefdinir and cefuroxime axetil may be tested individually because some isolates may be susceptible to these agents while testing resistant to cefazolin. (CLSI [id number] pg 53) 1. ESCHERICHIA COLI M.I.C Interp --------- ------ * AMOXICILLIN/CLAVULATE 4 S * AMPICILLIN <=2 S * CEFAZOLIN (CEPHALOSPORIN) UTI 4 S * CEFEPIME <=1 S * CEFTRIAXONE <=1 S * CEFUROXIME SODIUM 4 S * CIPROFLOXACIN <=0.25 S * ERTAPENEM <=0.5 S * GENTAMICIN <=1 S * IMIPENEM <=1 S * LEVOFLOXACIN <=0.12 S * NITROFURANTOIN <=16 S * TETRACYCLINE <=1 S * TOBRAMYCIN <=1 S * TRIMETHOPRIM/SULFAMETHOXAZOLE <=20 S X-Rays, CTs and MRIs PROCEDURE: MRI BRAIN WITHOUT CONTRAST ([id number]) INDICATIONS: History of neurosurgery 3 years ago/Seizures TECHNIQUE: Noncontrast axial T1 spin echo, axial T2 fast spin echo, sagittal and axial FLAIR, coronal T2 fast spin echo, axial gradient echo, axial diffusion and ADC through the brain. COMPARISON: [facility], CT, HEAD AND NECK ANGIO, 06/27/2016, 17:17. [facility], MR, MR BRAIN W&WO CON, 06/28/2016, 14:20. [facility], CT, CT BRAIN WO CON, 06/02/2017, 1:28 interval change.. FINDINGS: Image quality: Excellent. CSF Spaces: Basal cisterns are patent. No extra-axial fluid collections. Ventricles are normal in size and shape. Brain: No intracranial masses or hemorrhage. Cornejo/white matter interface is normal. Brainstem appears normal. Diffusion-weighted images demonstrate no acute ischemic insult. No chronic ischemic insults. Normal intravascular flow voids are present. Cerebellar tonsils are low lying measuring approximately 5 mm. Susceptibility artifact is present in the region of the right anterior circulation/terminal internal carotid artery consistent with previous aneurysm repair. Craniotomy and stable postsurgical signal change are noted. Skull and face: Calvarium has normal marrow signal. Orbits appear normal. Sinuses: Sinuses and mastoids are clear. IMPRESSION: 1. No acute intracranial process. 2. Stable appearance of right craniotomy and subtotal he artifact indicating prior repair of aneurysm within the right anterior circulation. 3. Unchanged appearance of cerebellar tonsillar ectopia, borderline for Chiari I malformation. Dictated by: Torrie Davis M.D. on 06/02/2017 at 15:51 Approved by: Torrie Davis M.D. on 06/02/2017 at 16:07 Assessment & Plan Carin Weldon is a 31-year-old female with history of clipped brain aneurysm, seizure activity of unknown etiology, and thrombocytosis who presents after seizure activity that caused severe tongue maceration s/p repair postop day #5 on 06/02 Tongue laceration, present on admission, active. s/p repair postop day #5 on - Hemostasis attempted in the ED with lidocaine\epinephrine and Tranexamic Acid with no success. - integrity consultant Dr. Frey attempted repair of tongue laceration at bedside but was unsuccessful. - Patient was taken to the operating room by Dr. Frey for repair and is postop day #3. - Hemoglobin 12.1 and hematocrit 38.3, stable. . -ENT- Dr. Frey recommends treatment with clindamycin and for patient to follow -up in his office in 1 week. - Repeat serial CBCs, wbc downtrending. -Patient transition from IV fentanyl to by mouth Dilaudid. Pain is well- controlled at this time. -We will discharge with one-week clindamycin and have patient follow-up early next week. Leukocytosis, present on admission. Resolved. Was likely secondary to above.. Possible infections include urinary tract infection, tongue infection. Thrush also possibility. treating with clindamycin for tongue laceration, levofloxacin for urinary tract infection, fluconazole for thrush. - Urine Culture +E Coli.Continue 7 days of treatment until 06/12. - We will continue to check serial CBCs. --WBC Downtrending at time of discharge. Antibiotics as per above. Seizure activity, present on admission, active. - Dr. Donna Hicks has been consulted and appreciate her time and expertise. - Etiology of seizures unclear. [facility] has completed numerous workups per the patient with no etiology elucidated. EEG ordered here today however shows seizure activity. - Records have been obtained from [facility]. - Patient loaded with Keppra in the ED. and with information that patient was having seizure activity seen on EEG today we will give another bolus of 1000 mg of Keppra. - Keppra increased from 500 mg twice a day to 1000 mg by mouth twice a day. Neuro Recs-continuing levetiracetam at 1000 mg two times daily and following up with Dr. Casillas at [facility] for further evaluation and treatment. 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 Thrombocytosis, present on admission, unknown chronicity. Stable. - Patient states she always has elevated platelets but typically they are in the 600 to 700s. - Platelets on admission 1233. This is likely reactive due to her recent tongue laceration and trauma. - JAK2 panel ordered and pending. - Repeat CBC shows platelet count downtrending to 813. Platelet count has remained stable if 800s for 3 consecutive days. This is apparently patient's baseline. Hyperkalemia- potassium is 5.1. We will hold potassium supplementation with IV fluids. Can hold IV fluids as patient is tolerating by mouth diet. Is likely worsened by potassium in IV solution of clindamycin. PRN Medications - Acetaminophen as needed for mild pain/fever/headache - Bowel regimen as needed - Antiemetic as needed Disposition: The patient will be here another 24-48 hours. Discharge Instructions- - ENT- Dr. Frey recommends follow-up in his office in 1 week. continue clindamycin for 1 week or longer depending on follow-up visit. - Neuro-Dr. Donna Hicks recommends levetiracetam at 1000 mg two times daily and following up with Dr. Casillas at [facility] for further evaluation. Keep follow -up appointment on June 12. - For UTI with Urine Culture +E Coli.Continue 7 days of treatment until 06/12. Continue Fluconazole for oral Thrush for 1 week until 06/12. GI Prophylaxis: Not indicated VTE Prophylaxis: Sub-Q Heparin (Unfractionated), SCDs VTE Mechanical Devices: Intermittant Pneumatic CD Resuscitation Status: CPR: Attempt Resuscitation Lucius Lester MD Jun 07, 2017 10:49
[2017-06-07] MEDS ORDERED: DIF100A PO (10:59)
[2017-06-07] MEDS ORDERED: KEP500TA PO (10:59)
[2017-06-07] MEDS ORDERED: LEVO500T16 PO (10:59)
[2017-06-07] MEDS ORDERED: HYDR2TAB27 PO (10:59)
[2017-06-07] MEDS ORDERED: CLIN300C3 PO (10:59)
[2017-06-07] MEDS ORDERED: Lactobacillus Acidophilus PO (10:59)
--- NOTE | 2017-06-07 11:05 | PCM.DIMED ---
Discharge Instructions Date of Service Jun 07, 2017 Dates of Hospitalization Jun 01, 2017 at 21:52 Discharge Diagnosis Discharge Diagnosis Tongue laceration, present on admission, active. s/p repair postop day #5 on Seizure activity, present on admission . UTI- Ecoli Oral Thrush Thrombocytosis, present on admission, unknown chronicity Medication Instructions Additional med instructions Continue to take clindamycin and Fluconazole for at least one week. Follow-up with ENT to determine when to stop. Continue ciprofloxacin until June 11 for 5 additional days for urinary tract infection Continue to take Keppra 1000 mg twice a day. Test Results Test Results Microbiology 06/02/17 Urine Culture - Final, Complete Escherichia Coli Patient Instructions Follow-up plan Follow-up with ENT, Dr. Frey early next week. Follow-up with your neurologist Dr. Vinny Rodgers. Keep appointment on June 12. Follow-up with her primary care doctor in 1-2 weeks. Follow-up with PCP in: 1 week Provider: Frankie Frey MD Follow-up in: 1 week Lucius Lester MD Jun 07, 2017 11:05
--- NOTE | 2017-06-07 12:39 | NUR ---
Social Work- Initial Assessment/Discharge/Multidisciplinary Rounds Data: See Initial Assessment. Pt is a 31 year old female admitted 06/01/17 for Seizure, Tongue Laceration per H&P. Pt's insurance is [employer]. Pt's PCP is Haydee Lazcano PA-C. Pt's NOK is Srini Weldon, . Pt's readmit risk score is 0. Per multidisciplinary rounds, pt's follow up appointments have been scheduled and pt is medically stable to discharge today. No SW needs identified in rounds. SW met with pt and and son at bedside regarding discharge plan, SW role explained. Pt alert and oriented x3. Pt's capacity for self-care assessed. Pt resides in [place] with her two sons (18 years old and 4 years old) and her father. Pt's mailing address is [place]. Pt's works but has a flexible schedule to be able to assist pt with transportation to her doctor's appointments. Pt is independent at baseline but does not drive due to her seizure disorder. Pt states that her father is able to help at home but it has become more limited since he has his own health issues that he needs to address. Pt's eldest 18 year old son assists at home as well. Pt is able to take the bus for transportation and pt's 4 year old son Jorge was very excited about the bus. Pt feels confident in her ability to follow up with her doctors and obtain her prescriptions. Pt and deny any issues related to obtaining medications since pt has gotten [employer]. Pt and her interacted appropriately with [employer] as well as their son Jorge while [employer] was in the room. Pt spoke of the activities that Jorge gets to participate in and also their friend network. Pt appears to be well connected to the community. Pt and denied any questions or concerns related to discharge. Pt's follow up appointments are scheduled and written in the discharge summary. Pt will discharge home with to transport via POV. No additional discharge needs identified. Assessment: Pt who is independent at baseline. Plan: Upon further assessment, no concerns identified related to pt's capacity for self care at this time. Pt's follow up appointments are scheduled and written in the discharge summary. Pt will discharge home with to transport via POV. No additional discharge needs identified. Hafsa Denton MSW Addendum: 06/07/17 at 1248 by LICO DILL Amended: Links added.
--- NOTE | 2017-06-07 14:17 | NUR ---
Discharge/Teaching Pt discharged to home with family; A&OX3, GALO, VSS, Pain tolerable, IV dc'd intact, Hard copy scripts provided to pt. CareNotes and instructions provided on dc dx, new medications and s/sx to seek medical attention for. Pt received pain medication prior to dc. All personal belongings in hand at dc. No unanswered questions/concerns left unanswered. Pt walked off unit to vehicle at 1417.
--- NOTE | 2017-06-08 13:16 | PCM.DC.MED ---
Discharge Summary Date of Service Jun 08, 2017 Dates of Hospitalization Date of Hospital Admission Jun 01, 2017 at 21:52 Date of Discharge: Jun 07, 2017 Providers: Admitting Physician: Malika De La Paz MD Primary Care Physician: Haydee Lazcano PA-C Attending Physician: Fawn Merchant MD Diagnosis at Time of Discharge Diagnosis at Time of Discharge Tongue laceration, present on admission, active. s/p repair postop day #5 on Seizure activity, present on admission . UTI- Ecoli Oral Thrush Thrombocytosis, present on admission, unknown chronicity Procedures XRay, CTs & MRIs PROCEDURE: MRI BRAIN WITHOUT CONTRAST ([id number]) INDICATIONS: History of neurosurgery 3 years ago/Seizures TECHNIQUE: Noncontrast axial T1 spin echo, axial T2 fast spin echo, sagittal and axial FLAIR, coronal T2 fast spin echo, axial gradient echo, axial diffusion and ADC through the brain. COMPARISON: [facility], CT, HEAD AND NECK ANGIO, 06/27/2016, 17:17. [facility], MR, MR BRAIN W&WO CON, 06/28/2016, 14:20. [facility], CT, CT BRAIN WO CON, 06/02/2017, 1:28 interval change.. FINDINGS: Image quality: Excellent. CSF Spaces: Basal cisterns are patent. No extra-axial fluid collections. Ventricles are normal in size and shape. Brain: No intracranial masses or hemorrhage. Cornejo/white matter interface is normal. Brainstem appears normal. Diffusion-weighted images demonstrate no acute ischemic insult. No chronic ischemic insults. Normal intravascular flow voids are present. Cerebellar tonsils are low lying measuring approximately 5 mm. Susceptibility artifact is present in the region of the right anterior circulation/terminal internal carotid artery consistent with previous aneurysm repair. Craniotomy and stable postsurgical signal change are noted. Skull and face: Calvarium has normal marrow signal. Orbits appear normal. Sinuses: Sinuses and mastoids are clear. IMPRESSION: 1. No acute intracranial process. 2. Stable appearance of right craniotomy and subtotal he artifact indicating prior repair of aneurysm within the right anterior circulation. 3. Unchanged appearance of cerebellar tonsillar ectopia, borderline for Chiari I malformation. Dictated by: Torrie Davis M.D. on 06/02/2017 at 15:51 Approved by: Torrie Davis M.D. on 06/02/2017 at 16:07 Brief History Per Admission HPI Carin Weldon is a 31-year-old female with history of clipped brain aneurysm, seizure activity of unknown etiology, and thrombocytosis who presents after seizure activity that caused severe tongue maceration. Patient and father attempted to stop the bleeding at home but were unsuccessful. History is obtained from the patient and father but is somewhat difficult as the patient's tongue continues to bleed and she has it wrapped in a cloth. She states that she had aneurysm clips placed through 4 years ago at [facility]. She was then placed on Keppra for her seizure activity. [facility] has never been able to find a cause or etiology of her seizures. Approximately a year ago [facility] thought she may be having pseudoseizures and discontinued her Keppra. Today is the first seizure she has experienced since discontinuing her Keppra. The patient was observed by her father to lean forward and begin whole body shaking. She subsequently fell on the ground but did not sustain any direct blow to the head. This episode lasted approximately 2 minutes and resolved on its own. In the ED patient was afebrile with a pulse of 111, respiratory rate 20, blood pressure 142/96, oxygen saturation of 100% on room air. Patient was found to have a severe lacerated tongue. Hemostasis with lidocaine/epinephrine and tranexamic acid was unsuccessful by the ED physician. ENT was contacted and attempted repair at bedside but was unsuccessful. The plan is to take the patient to the OR for laceration repair. Patient was loaded with Keppra in the ED as well. Hospital Course Carin Weldon is a 31-year-old female with history of clipped brain aneurysm, seizure activity of unknown etiology, and thrombocytosis who presents after seizure activity that caused severe tongue maceration s/p repair postop day #5 on 06/02 Tongue laceration, present on admission, active. s/p repair postop day #5 on - Hemostasis attempted in the ED with lidocaine\epinephrine and Tranexamic Acid with no success. - home energy consultant supervisor Dr. Frey attempted repair of tongue laceration at bedside but was unsuccessful. - Patient was taken to the operating room by Dr. Frey for repair and is postop day #3. - Hemoglobin 12.1 and hematocrit 38.3, stable. . -ENT- Dr. Frey recommends treatment with clindamycin and for patient to follow -up in his office in 1 week. - Repeat serial CBCs, wbc downtrending. -Patient transition from IV fentanyl to by mouth Dilaudid. Pain is well- controlled at this time. -We will discharge with one-week clindamycin and have patient follow-up early next week. Leukocytosis, present on admission. Resolved. Was likely secondary to above.. Possible infections include urinary tract infection, tongue infection. Thrush also possibility. treating with clindamycin for tongue laceration, levofloxacin for urinary tract infection, fluconazole for thrush. - Urine Culture +E Coli.Continue 7 days of treatment until 06/12. - We will continue to check serial CBCs. --WBC Downtrending at time of discharge. Antibiotics as per above. Seizure activity, present on admission, active. - Dr. Donna Hicks has been consulted and appreciate her time and expertise. - Etiology of seizures unclear. [facility] has completed numerous workups per the patient with no etiology elucidated. EEG ordered here today however shows seizure activity. - Records have been obtained from [facility]. - Patient loaded with Keppra in the ED. and with information that patient was having seizure activity seen on EEG today we will give another bolus of 1000 mg of Keppra. - Keppra increased from 500 mg twice a day to 1000 mg by mouth twice a day. Neuro Recs-continuing levetiracetam at 1000 mg two times daily and following up with Dr. Casillas at [facility] for further evaluation and treatment. 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 Thrombocytosis, present on admission, unknown chronicity. Stable. - Patient states she always has elevated platelets but typically they are in the 600 to 700s. - Platelets on admission 1233. This is likely reactive due to her recent tongue laceration and trauma. - JAK2 panel ordered and pending. - Repeat CBC shows platelet count downtrending to 813. Platelet count has remained stable if 800s for 3 consecutive days. This is apparently patient's baseline. Hyperkalemia- potassium is 5.1. We will hold potassium supplementation with IV fluids. Can hold IV fluids as patient is tolerating by mouth diet. Is likely worsened by potassium in IV solution of clindamycin. PRN Medications - Acetaminophen as needed for mild pain/fever/headache - Bowel regimen as needed - Antiemetic as needed Disposition: The patient will be here another 24-48 hours. Discharge Instructions- - ENT- Dr. Frey recommends follow-up in his office in 1 week. continue clindamycin for 1 week or longer depending on follow-up visit. - Neuro-Dr. Donna Hicks recommends levetiracetam at 1000 mg two times daily and following up with Dr. Casillas at [facility] for further evaluation. Keep follow -up appointment on June 12. - For UTI with Urine Culture +E Coli.Continue 7 days of treatment until 06/12. Continue Fluconazole for oral Thrush for 1 week until 06/12. Exam Vital Signs (Last) Date Time Temp Pulse Resp B/P Pulse Ox O2 Delivery O2 Flow Rate FiO2 06/07/17 09:53 36.7 97 16 118/81 97 Room Air 06/02/17 00:50 10 Test 06/01/17 22:23 06/01/17 23:16 06/02/17 08:00 06/02/17 21:34 Human Chorionic Gonadotropin, Qual 0.500 (Negative) Lactic Acid Level 0.5mmol/L (0.4-2.0) Urine Color Yellow (YELLOW) Urine Appearance Clear (CLEAR,HAZY) Urine pH 6.0 (5.0-8.0) Urine Specific [place] 1.029 (1.003-1.035) Urine Protein Negativemg/dL (NEG,TRACE) Urine Glucose (UA) Negativemg/dL (NEGATIVE) Urine Ketones Negativemg/dL (NEGATIVE) Urine Occult Blood Trace (NEGATIVE) Urine Nitrite Negative (NEGATIVE) Urine Bilirubin Negative (NEGATIVE) Urine Urobilinogen Normalmg/dL (NORMAL) Urine Leukocyte Esterase Negative (NEGATIVE) Urine RBC 3-10/hpf (0-2) Urine WBC 6-10/hpf (0-5) Urine Epithelial Cells Moderate/hpf (NONE-MOD) Urine Crystals None seen (NONE SEEN) Urine Bacteria Few/hpf (NONE-FEW) Urine Hyaline Casts None/lpf (NONE) Urine Granular Casts None seen (NONE SEEN) Urine Waxy Casts None seen (NONE SEEN) Urine Red Blood Cell Casts None seen (NONE SEEN) Urine White Blood Cell Casts None seen (NONE SEEN) Urine Mucus Present (None Seen) Urine Trichomonas None seen (NONE SEEN) Urine Yeast None (NONE SEEN) Urinalysis Comment None Urine Culture Reflexed Indicated Test 06/05/17 05:50 06/07/17 07:08 Erythrocyte Sedimentation Rate 2mm/hr (0-32) Magnesium Level 2.0mg/dL (1.6-2.6) Total Bilirubin 0.2mg/dL (0.0-1.2) Aspartate Amino Transf (AST/SGOT) 15U/L (0-50) Alanine Aminotransferase (ALT/SGPT) 23U/L (0-32) Alkaline Phosphatase 48U/L (25-150) C-Reactive Protein 0.4mg/dL (0.0-0.5) Total Protein 6.8g/dL (6.4-8.4) Albumin 4.2g/dL (3.4-5.0) Procalcitonin 0.03ng/mL (0.00-0.08) White Blood Count 10.7th/mm3 (3.8-10.1) Red Blood Count 4.53mil/mm3 (3.90-5.20) Hemoglobin 10.6g/dL (12.0-15.6) Hematocrit 34.5% (35.0-46.0) Mean Corpuscular Volume 76.2fL (81-100) Mean Corpuscular Hemoglobin 23.4pg (27.0-35.0) Mean Corpuscular Hemoglobin Concent 30.7% (32.0-37.0) Red Cell Distribution Width 16.5% (12.3-15.4) Platelet Count 872bil/L (150-400) Neutrophils (%) (Auto) 55.1% (40-74) Lymphocytes (%) (Auto) 30.8% (14-46) Monocytes (%) (Auto) 8.6% (4-12) Eosinophils (%) (Auto) 3.7% (0-5) Basophils (%) (Auto) 1.3% (0-3) Sodium Level 140mEq/L (134-144) Potassium Level 5.0mEq/L (3.5-5.2) Chloride Level 103mEq/L (97-108) Carbon Dioxide Level 24mmol/L (18-29) Blood Urea Nitrogen 7mg/dL (6-20) Creatinine 0.66mg/dL (0.57-1.00) Estimat Glomerular Filtration Rate 149mL/min (>59) Glucose Level 101mg/dL (60-99) Calcium Level 9.2mg/dL (8.5-10.1) Microbiology Results SHAHRAM CULT URINE Final 06/04/17-826 Organism 1 ESCHERICHIA COLI U COLONY COUNT/QUANTITY >100,000 CFU/ml Cefazolin-predicts results for the oral agents, cefaclor,cefdinir, cefpodoximen, cefprozil, cefuroximne axetil, cephalexin and loracarbed when used for therapy of uncomplicated UTI's due to E. coli, K. pneumoniae, and Proteus mirabilis. Cefpodoxime, cefdinir and cefuroxime axetil may be tested individually because some isolates may be susceptible to these agents while testing resistant to cefazolin. (CLSI E066-D30 pg 53) 1. ESCHERICHIA COLI M.I.C Interp --------- ------ * AMOXICILLIN/CLAVULATE 4 S * AMPICILLIN <=2 S * CEFAZOLIN (CEPHALOSPORIN) UTI 4 S * CEFEPIME <=1 S * CEFTRIAXONE <=1 S * CEFUROXIME SODIUM 4 S * CIPROFLOXACIN <=0.25 S * ERTAPENEM <=0.5 S * GENTAMICIN <=1 S * IMIPENEM <=1 S * LEVOFLOXACIN <=0.12 S * NITROFURANTOIN <=16 S * TETRACYCLINE <=1 S * TOBRAMYCIN <=1 S * TRIMETHOPRIM/SULFAMETHOXAZOLE <=20 S Discharge Medications Discharge Medications ([Lactobacillus Acidophilus]) 1 TABLET TABLET 2 TABLET PO PCHS Prescribed by: FAWN MERCHANT MD Aspirin (Aspirin) 81 Mg Tablet 81 MG PO DAILY (Reported) Clindamycin HCl (Cleocin) 300 Mg Capsule 600 MG PO Q8H Prescribed by: FAWN MERCHANT MD Fluconazole (Diflucan) 100 Mg Tab 200 MG PO DAILY Prescribed by: FAWN MERCHANT MD Levetiracetam (Keppra) 500 Mg Tablet 1,000 MG PO BID Prescribed by: FAWN MERCHANT MD Levofloxacin (Levaquin) 500 Mg Tablet 500 MG PO DAILY@07 Prescribed by: FAWN MERCHANT MD As needed Albuterol HFA (Proair HFA) 8.5 Gm Hfa.aer.ad 2 PUFFS INHALATION Q4H PRN PRN For Shortness of Breath (Reported) Budesonide/Formoterol 80-4.5 mcg Inh (Symbicort 80-4.5 mcg Inh) 120 Puff Inhaler 1 PUFF INHALATION PRN For Shortness of Breath (Reported) Hydromorphone (Dilaudid) 2 Mg Tablet 4 MG PO Q4H PRN PRN For Pain Prescribed by: FAWN MERCHANT MD Additional med instructions Continue to take clindamycin and Fluconazole for at least one week. Follow-up with ENT to determine when to stop. Continue ciprofloxacin until June 11 for 5 additional days for urinary tract infection Continue to take Keppra 1000 mg twice a day. Followup Plan Follow-up plan Follow-up with ENT, Dr. Frey early next week. Follow-up with your neurologist Dr. Vinny Rodgers. Keep appointment on June 12. Follow-up with her primary care doctor in 1-2 weeks. Follow-up with PCP in: 1 week Provider: Frankie Frey MD Follow-up in: 1 week Fawn Merchant MD Jun 08, 2017 13:16
--- NOTE | 2017-06-11 17:47 | PCM.PNMED ---
Subjective Date of Service Jun 06, 2017 Subjective Pt had no overnight events Exam Vital Signs Vital Sign - Last Date Time Temp Pulse Resp B/P Pulse Ox O2 Delivery O2 Flow Rate FiO2 06/07/17 09:53 36.7 97 16 118/81 97 Room Air Intake and Output 06/10/17 06/10/17 06/11/17 Cumulative From/Thru 15:00 23:00 07:00 06/02/17 00:01 - 06/07/17 06:28 Intake Total 85390 ml Output Total 6975 ml Balance 4824 ml Intake Oral 6474 ml IV Total 5325 ml Output Urine Total 6975 ml # Voids 4 # Bowel Movements 2 Exam Gen: NAD, AOx3. HEENT: NCAT, PERRLA, EOMI, sclera anicteric. Tongue- some exudate and scarring. No active bleeding. Tongue swelling has improved. Speech is still slightly slurred. Neck: Soft, supple, symmetrical, no thyromegaly/JVD/LAD. Resp: CTAB, no R/R/W. CV: RRR, nl S1/S2, no M/R/G, Abd: Soft, (+) BS, no guarding/rebound/organomegaly. Ext: +PP, -edema Skin: warm/dry/intact Neuro/Psych: No focal deficits, CN II-XII grossly intact. AAOx3, cooperative , patient did have a flat affect but answered questions fully. IVs and Medications Medications Reviewed: Medications were reviewed in detail Lab and Diagnostics Result Diagram: 06/07/17 0708 06/07/17 0708 Microbiology SHAHRAM CULT URINE Final 06/04/17-08 Organism 1 ESCHERICHIA COLI U COLONY COUNT/QUANTITY >100,000 CFU/ml Cefazolin-predicts results for the oral agents, cefaclor,cefdinir, cefpodoximen, cefprozil, cefuroximne axetil, cephalexin and loracarbed when used for therapy of uncomplicated UTI's due to E. coli, K. pneumoniae, and Proteus mirabilis. Cefpodoxime, cefdinir and cefuroxime axetil may be tested individually because some isolates may be susceptible to these agents while testing resistant to cefazolin. (CLSI [id number] pg 53) 1. ESCHERICHIA COLI M.I.C Interp --------- ------ * AMOXICILLIN/CLAVULATE 4 S * AMPICILLIN <=2 S * CEFAZOLIN (CEPHALOSPORIN) UTI 4 S * CEFEPIME <=1 S * CEFTRIAXONE <=1 S * CEFUROXIME SODIUM 4 S * CIPROFLOXACIN <=0.25 S * ERTAPENEM <=0.5 S * GENTAMICIN <=1 S * IMIPENEM <=1 S * LEVOFLOXACIN <=0.12 S * NITROFURANTOIN <=16 S * TETRACYCLINE <=1 S * TOBRAMYCIN <=1 S * TRIMETHOPRIM/SULFAMETHOXAZOLE <=20 S X-Rays, CTs and MRIs PROCEDURE: MRI BRAIN WITHOUT CONTRAST ([id number]) INDICATIONS: History of neurosurgery 3 years ago/Seizures TECHNIQUE: Noncontrast axial T1 spin echo, axial T2 fast spin echo, sagittal and axial FLAIR, coronal T2 fast spin echo, axial gradient echo, axial diffusion and ADC through the brain. COMPARISON: [facility], CT, HEAD AND NECK ANGIO, 06/27/2016, 17:17. [facility], MR, MR BRAIN W&WO CON, 06/28/2016, 14:20. [facility], CT, CT BRAIN WO CON, 06/02/2017, 1:28 interval change.. FINDINGS: Image quality: Excellent. CSF Spaces: Basal cisterns are patent. No extra-axial fluid collections. Ventricles are normal in size and shape. Brain: No intracranial masses or hemorrhage. Cornejo/white matter interface is normal. Brainstem appears normal. Diffusion-weighted images demonstrate no acute ischemic insult. No chronic ischemic insults. Normal intravascular flow voids are present. Cerebellar tonsils are low lying measuring approximately 5 mm. Susceptibility artifact is present in the region of the right anterior circulation/terminal internal carotid artery consistent with previous aneurysm repair. Craniotomy and stable postsurgical signal change are noted. Skull and face: Calvarium has normal marrow signal. Orbits appear normal. Sinuses: Sinuses and mastoids are clear. IMPRESSION: 1. No acute intracranial process. 2. Stable appearance of right craniotomy and subtotal he artifact indicating prior repair of aneurysm within the right anterior circulation. 3. Unchanged appearance of cerebellar tonsillar ectopia, borderline for Chiari I malformation. Dictated by: Torrie Davis M.D. on 06/02/2017 at 15:51 Approved by: Torrie Davis M.D. on 06/02/2017 at 16:07 Assessment & Plan Carin Weldon is a 31-year-old female with history of clipped brain aneurysm, seizure activity of unknown etiology, and thrombocytosis who presents after seizure activity that caused severe tongue maceration s/p repair postop day #5 on 06/02 Tongue laceration, present on admission, active. s/p repair postop day #5 on - Hemostasis attempted in the ED with lidocaine\epinephrine and Tranexamic Acid with no success. - corporate learning consultant Dr. Frey attempted repair of tongue laceration at bedside but was unsuccessful. - Patient was taken to the operating room by Dr. Frey for repair and is postop day #3. - Hemoglobin 12.1 and hematocrit 38.3, stable. . -ENT- Dr. Frey recommends treatment with clindamycin and for patient to follow -up in his office in 1 week. - Repeat serial CBCs, wbc downtrending. -Patient transition from IV fentanyl to by mouth Dilaudid. Pain is well- controlled at this time. -We will discharge with one-week clindamycin and have patient follow-up early next week. Leukocytosis, present on admission. Resolved. Was likely secondary to above.. Possible infections include urinary tract infection, tongue infection. Thrush also possibility. treating with clindamycin for tongue laceration, levofloxacin for urinary tract infection, fluconazole for thrush. - Urine Culture +E Coli.Continue 7 days of treatment until 06/12. - We will continue to check serial CBCs. --WBC Downtrending at time of discharge. Antibiotics as per above. Seizure activity, present on admission, active. - Dr. Donna Hicks has been consulted and appreciate her time and expertise. - Etiology of seizures unclear. [facility] has completed numerous workups per the patient with no etiology elucidated. EEG ordered here today however shows seizure activity. - Records have been obtained from [facility]. - Patient loaded with Keppra in the ED. and with information that patient was having seizure activity seen on EEG today we will give another bolus of 1000 mg of Keppra. - Keppra increased from 500 mg twice a day to 1000 mg by mouth twice a day. Neuro Recs-continuing levetiracetam at 1000 mg two times daily and following up with Dr. Casillas at [facility] for further evaluation and treatment. 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 Thrombocytosis, present on admission, unknown chronicity. Stable. - Patient states she always has elevated platelets but typically they are in the 600 to 700s. - Platelets on admission 1233. This is likely reactive due to her recent tongue laceration and trauma. - JAK2 panel ordered and pending. - Repeat CBC shows platelet count downtrending to 813. Platelet count has remained stable if 800s for 3 consecutive days. This is apparently patient's baseline. Hyperkalemia- potassium is 5.1. We will hold potassium supplementation with IV fluids. Can hold IV fluids as patient is tolerating by mouth diet. Is likely worsened by potassium in IV solution of clindamycin. PRN Medications - Acetaminophen as needed for mild pain/fever/headache - Bowel regimen as needed - Antiemetic as needed Disposition: The patient will be here another 24-48 hours. Discharge Instructions- - ENT- Dr. Frey recommends follow-up in his office in 1 week. continue clindamycin for 1 week or longer depending on follow-up visit. - Neuro-Dr. Donna Hicks recommends levetiracetam at 1000 mg two times daily and following up with Dr. Casillas at [facility] for further evaluation. Keep follow -up appointment on June 12. - For UTI with Urine Culture +E Coli.Continue 7 days of treatment until 06/12. Continue Fluconazole for oral Thrush for 1 week until 06/12. GI Prophylaxis: Not indicated VTE Prophylaxis: Sub-Q Heparin (Unfractionated), SCDs VTE Mechanical Devices: Intermittant Pneumatic CD Resuscitation Status: CPR: Attempt Resuscitation Lucius Lester MD Jun 11, 2017 17:47
== END 2017-06-07 14:20 | disposition home or self-care (01) | DRG 137 ==
LOC: SED 20:19 → OBSVTOIN 21:52 → OSC 21:52
PROVIDERS: ADMIT Specialist; ATTEND Internal Medicine
PROC: 0CQ7XZZ Repair Tongue, External Approach (ICD-10-PCS; principal; 2017-06-02 00:15)
PROC: 4A00X4Z Measurement of Central Nervous Electrical Activity, External Approach (ICD-10-PCS; 2017-06-03)
DX: S01.512A Laceration without foreign body of oral cavity, initial encounter (principal); N39.0 Urinary tract infection, site not specified; B37.0 Candidal stomatitis; D69.6 Thrombocytopenia, unspecified; G40.909 Epilepsy, unspecified, not intractable, without status epilepticus; B96.20 Unspecified Escherichia coli [E. coli] as the cause of diseases classified elsewhere; X58.XXXA Exposure to other specified factors, initial encounter; Y92.019 Unspecified place in single-family (private) house as the place of occurrence of the external cause